=== PATIENT | female | born 1950 | race Caucasian/White ===

== ENCOUNTER 2017-07-11 20:50 | Inpatient (IN) | payer MEDICARE, BC ==
[2017-07-11] MEDS ORDERED: Albuterol 0.083% Inhal Sol (2.5 mg/3 mL) UD INH STA (21:05)
[2017-07-11] MEDS ORDERED: Albuterol-Ipratrop 3 mg / 0.5 (3 ml) UD IH STA (21:05)
--- NOTE | 2017-07-11 21:11 | ED PDOC ---
Arrival/HPI - General Chief Complaint: Shortness Of Breath Time Seen by Provider: 07/11/17 20:54 Historian: Patient - History of Present Illness Narrative History of Present Illness (Text): 07/11/17 20:55 Nayely Sandhu is a 67 year old female, whose past medical history includes asthma and COPD, who presents to the emergency department complaining of 2 day duration of fever, non-productive cough, chills, and body aches. Patient notes that she did not get the flu shot because last year, the flu shot exacerbated her COPD. Patient denies any chest pain, abdominal pain, nausea, vomiting, diarrhea, back pain, neck pain, urinary symptoms, headache, dizziness , or any other complaint. Time/Duration: < week Symptom Onset: Gradual Symptom Course: Unchanged Activities at Onset: Light Context: Home Past Medical History - Provider Review Nursing Documentation Reviewed: Yes - Infectious Disease Hx of Infectious Diseases: None - Tetanus Immunization Tetanus Immunization: Up to Date - Cardiac Hx Cardiac Disorders: Yes Hx Hypertension: Yes - Pulmonary Hx Chronic Obstructive Pulmonary Disease (COPD): Yes - Neurological Hx Neurological Disorder: No - HEENT Hx HEENT Disorder: No (WEARS GLASSES) - Renal Hx Renal Disorder: No - Endocrine/Metabolic Hx Diabetes Mellitus Type 1: Yes Hx Diabetes Mellitus Type 2: Yes - Hematological/Oncological Hx Blood Disorders: No - Integumentary Hx Dermatological Disorder: No - Musculoskeletal/Rheumatological Hx Back Pain: Yes Hx Falls: Yes Hx Osteoarthritis: Yes - Gastrointestinal Hx Diverticulitis: Yes Hx Gastroesophageal Reflux: Yes - Genitourinary/Gynecological Hx Urinary Tract Infection: Yes (Frequent) - Psychiatric Hx Psychophysiologic Disorder: No Hx Substance Use: No - Surgical History Hx Appendectomy: Yes Hx Cholecystectomy: Yes Hx Hysterectomy: Yes - Anesthesia Hx Anesthesia: Yes Hx Anesthesia Reactions: No Hx Malignant Hyperthermia: No - Suicidal Assessment Feels Threatened In Home Enviroment: No Family/Social History - Physician Review Nursing Documentation Reviewed: Yes Family/Social History: No Known Family HX Smoking Status: Never Smoked Hx Alcohol Use: No Hx Substance Use: No Hx Substance Use Treatment: No Allergies/Home Meds Allergies/Adverse Reactions: Allergies FISH Allergy (Verified 08/02/16 22:52) SHORTNESS OF BREATH iodine Allergy (Verified 08/02/16 22:52) ANAPHYLAXIS Home Medications: Home Meds Medication Instructions Recorded Confirmed Insulin Aspart Prot/Insuln Asp 32 units SC TID 11/30/11 07/12/17 [Novolog Mix 70-30 Vial] Insulin Glargine,Hum.rec.anlog 60 unit SC HS 11/30/11 07/12/17 [Lantus] Tiotropium [Spiriva] 18 mcg IH DAILY 11/30/11 07/12/17 Montelukast [Singulair] 10 mg PO DAILY 06/15/13 07/12/17 Review of Systems - Physician Review All systems were reviewed & negative as marked: Yes - Review of Systems Constitutional: Fevers, Night Sweats, Other (body aches) Eyes: absent: Vision Changes ENT: absent: Hearing Changes Respiratory: Cough Cardiovascular: absent: Chest Pain Gastrointestinal: absent: Abdominal Pain Genitourinary Female: absent: Dysuria, Frequency Musculoskeletal: absent: Arthralgias Skin: absent: Rash, Pruritis Neurological: absent: Headache Endocrine: absent: Diaphoresis Hemo/Lymphatic: absent: Adenopathy Psychiatric: absent: Anxiety, Depression Physical Exam Vital Signs Reviewed: Yes Vital Signs Temp Pulse Resp BP Pulse Ox 07/12/17 00:12 99.5 F 95 H 20 108/56 L 96 07/11/17 21:52 22 07/11/17 20:52 99.9 F H 86 24 95 Temperature: Febrile Blood Pressure: Normal Pulse: Regular Respiratory Rate: Normal Appearance: Positive for: Non-Toxic, Ill-Appearing Pain Distress: None Mental Status: Positive for: Alert and Oriented X 3 - Systems Exam Head: Present: Atraumatic, Normocephalic Pupils: Present: PERRL Extroacular Muscles: Present: EOMI Conjunctiva: Present: Normal Mouth: Present: Moist Mucous Membranes Neck: Present: Normal Range of Motion Respiratory/Chest: Present: Wheezes (bilaterally) Cardiovascular: Present: Regular Rate and Rhythm, Normal S1, S2. No: Murmurs Abdomen: Present: Normal Bowel Sounds. No: Tenderness, Distention, Peritoneal Signs Back: Present: Normal Inspection Upper Extremity: Present: Normal Inspection. No: Cyanosis, Edema Lower Extremity: Present: Normal Inspection. No: Edema Neurological: Present: GCS=15, CN II-XII Intact, Speech Normal Skin: Present: Warm, Dry, Normal Color. No: Rashes Psychiatric: Present: Alert, Oriented x 3, Normal Insight, Normal Concentration Medical Decision Making ED Course and Treatment: 07/11/17 21:12 Impression: 67 year old female complaining of 2 day duration of fever, non-productive cough , chills, and body aches Plan: -- Chest X-ray -- VBG and Blood Culture -- Urine Culture and Urinalysis -- Labs -- Albuterol and Duoneb -- Reassess and disposition Prior Visits: Notes and results from previous visits were reviewed. Patient was last seen in the emergency department on 07/29/16 for shortness of breath. Patient was admitted to hospitalist care for further evaluation. Progress Notes: 07/12/17 00:[address] Jernigan, who agrees to admit patient and advised patient to be given steroids and tamiflu. - Lab Interpretations Microbiology Results: Microbiology Results 07/11/17 22:20 Blood-Venous Blood Culture - Preliminary NO GROWTH AFTER 48 HOURS 07/11/17 21:48 Blood-Venous Blood Culture - Preliminary NO GROWTH AFTER 48 HOURS 07/11/17 23:29 Urine,Clean Catch Urine Culture - Final 10-50,000 CFU/ML. MULTIPLE SPECIES. PROBABLE CONTAMINATION. Lab Results: 07/11/17 21:48 07/11/17 21:48 Lab Results 07/11/17 23:29: Urine Color yellow, Urine Appearance Clear, Urine pH 6.0, Ur Specific [place] 1.020, Urine Protein Negative, Urine Glucose (UA) Negative, Urine Ketones Negative, Urine Blood Negative, Urine Nitrate Negative, Urine Bilirubin Negative, Urine Urobilinogen 0.2, Ur Leukocyte Esterase Negative 07/11/17 22:17: Influenza Typ A,B (EIA) Pos for influenza a H 07/11/17 21:48: Sodium 140, Chloride 98, Potassium 4.6, Carbon Dioxide 29, Anion Gap 18, BUN 17, Creatinine 0.7, Est GFR ( Amer) > 60, Est GFR (Non- Af Amer) > 60, Random Glucose 170 H, Calcium 9.9, Total Bilirubin 0.6, AST 40 H , ALT 28, Alkaline Phosphatase 104, Lactate Dehydrogenase 546, Total Creatine Kinase 60, Troponin I < 0.01, Total Protein 8.1, Albumin 4.2, Globulin 4.0, Albumin/Globulin Ratio 1.1 07/11/17 21:48: pO2 33, VBG pH 7.35, VBG pCO2 59.0, VBG HCO3 32.6 H, VBG Total CO2 34.4 H, VBG O2 Sat (Calc) 71.2 H, VBG Base Excess 5.2 H, VBG Potassium 4.9, Sodium 137.0, Chloride 101.0, Glucose 182 H, Lactate 1.8, FiO2 21.0, Venous Blood Potassium 4.9 07/11/17 21:48: PT 12.9 H, INR 1.13 H 07/11/17 21:48: WBC 9.7 D, RBC 4.53, Hgb 12.1, Hct 38.4, MCV 84.8, MCH 26.7, MCHC 31.5, RDW 15.2 H, Plt Count 250, MPV 11.1 H, Gran % 76.0 H, Lymph % (Auto) 13.0 L, [place] % (Auto) 10.4 H, Eos % (Auto) 0.4 L, Baso % (Auto) 0.2, Gran # 7.40 H, Lymph # (Auto) 1.3, [place] # (Auto) 1.0 H, Eos # (Auto) 0.0, Baso # (Auto ) 0.02 07/11/17 20:58: Influenza Typ A,B (EIA) Pos for influenza a H I have reviewed the lab results: Yes - RAD Interpretation Radiology Orders: 07/11/17 21:05 CHEST TWO VIEWS (PA/LAT) [RAD] Stat - Medication Orders Current Medication Orders: Acetaminophen (Tylenol 325mg Tab) 650 mg PO Q6H PRN PRN Reason: Pain, moderate (4-7) Last Admin: 07/12/17 08:31 Dose: 650 mg MAR Pain/Vitals Document 07/12/17 08:31 [facility] (Rec: 07/12/17 08:31 [facility] [id number]) Location Pain Location [employer] Arformoterol Tartrate (Brovana) 15 mcg IH [id number] [facility] Azithromycin (Zithromax) 500 mg PO DAILY [facility] PRN Reason: Protocol Stop: 07/17/17 12:01 Last Admin: 07/14/17 10:01 Dose: 500 mg Budesonide (Pulmicort Respules) 1 mg IH [id number] [facility] Clotrimazole (Mycelex Josh) 10 mg MT Q6 [facility] Last Admin: 07/14/17 17:19 Dose: 10 mg Insulin Human Regular (Humulin R Med) 0 units SC ACHS [facility] PRN Reason: Protocol Last Admin: 07/14/17 17:18 Dose: 1 units MAR Blood Glucose Document 07/14/17 17:18 GM (Rec: 07/14/17 17:18 GM [id number]) Blood Glucose Finger Stick Blood Glucose (70-120) 158 Subcutaneous Administrations Document 07/14/17 17:18 GM (Rec: 07/14/17 17:18 GM [id number]) Charges for Administration # of Subcutaneous Administrations 1 Levalbuterol HCl (Xopenex) 0.63 mg IH TIDRESP PRN PRN Reason: Shortness of Breath Montelukast Sodium (Singulair) 10 mg PO HS [facility] Last Admin: 07/13/17 21:44 Dose: 10 mg Ondansetron HCl (Zofran Inj) 4 mg IVP Q6H PRN PRN Reason: Nausea/Vomiting Last Admin: 07/12/17 13:10 Dose: 4 mg IVP Administration Document 07/12/17 13:10 SML (Rec: 07/12/17 13:10 SML [id number]) Charges for Administration # of IVP Administrations 1 Oseltamivir Phosphate (Tamiflu Cap) 75 mg PO BID [facility] PRN Reason: Protocol Stop: 07/17/17 06:41 Last Admin: 07/14/17 17:19 Dose: 75 mg Pantoprazole Sodium (Protonix Ec Tab) 40 mg PO 0600 [facility] Last Admin: 07/14/17 05:20 Dose: 40 mg Prednisone (Prednisone Tab) 20 mg PO DAILY [facility] Last Admin: 07/14/17 10:01 Dose: 20 mg Promethazine HCl/Codeine (Phenergan/Codeine Oral Syrup) 5 ml PO Q4H PRN PRN Reason: Cough and congestion Last Admin: 07/14/17 17:18 Dose: 5 ml Discontinued Medications Acetaminophen (Tylenol 325mg Tab) 975 mg PO STAT STA Stop: 07/11/17 21:53 Last Admin: 07/11/17 21:58 Dose: 975 mg MAR Pain/Vitals Document 07/11/17 21:58 OCS (Rec: 07/11/17 21:59 OCS [id number]) Pain Reassessment Is This A Pain ReAssessment? Yes Sleep Is patient sleeping during reassessment? No Presence of Pain Presence of Pain Yes Pain Scale Used Pain Scale Used Numeric Location Pain Location [employer] Description Constant Intensity 6 Scale Used Numeric Aggravating Factors ADL's Albuterol Sulfate (Albuterol 0.083% Inhal Unique (2.5 Mg/3 Ml) Ud) 2.5 mg INH STAT STA Stop: 07/11/17 21:06 Last Admin: 07/11/17 21:46 Dose: 2.5 mg Albuterol/Ipratropium (Duoneb 3 Mg/0.5 Mg (3 Ml) Ud) 3 ml IH STAT STA Stop: 07/11/17 21:06 Last Admin: 07/11/17 21:28 Dose: 3 ml Ceftriaxone Sodium (Rocephin 1 Gram Ivpb) 1 gm in 100 mls @ 100 mls/hr IVPB DAILY [facility] PRN Reason: Protocol Last Admin: 07/12/17 09:10 Dose: 100 mls/hr eMAR Start Stop Document 07/12/17 09:10 SML (Rec: 07/12/17 10:33 SML [id number]) Intravenous Solution Start Date 07/12/17 Start Time 09:10 End Date 07/12/17 End time 10:10 Total Infusion Time 60 Methylprednisolone (Solu-Medrol) 40 mg IVP STAT STA Stop: 07/12/17 00:31 Last Admin: 07/12/17 00:54 Dose: 40 mg IVP Administration Document 07/12/17 00:54 OCS (Rec: 07/12/17 00:54 OCS [id number]) Charges for Administration # of IVP Administrations 1 Methylprednisolone (Solu-Medrol) 40 mg IVP Q12 [facility] Last Admin: 07/13/17 10:08 Dose: 40 mg IVP Administration Document 07/13/17 10:08 JW (Rec: 07/13/17 10:08 JW [id number]) Charges for Administration # of IVP Administrations 1 Oseltamivir Phosphate (Tamiflu Cap) 75 mg PO ONCE ONE PRN Reason: Protocol Stop: 07/12/17 00:31 Last Admin: 07/12/17 00:54 Dose: 75 mg Promethazine HCl/Dextromethorphan (Phenergan Dm Syrup) 5 ml PO Q6H PRN PRN Reason: Cough Last Admin: 07/14/17 13:52 Dose: 5 ml - PA / [employer]IN[employer]ENT TAX COLLECTOR / Resident Statement MD/DO has reviewed & agrees with the documentation as recorded. - Scribe Statement The provider has reviewed the documentation as recorded by the Scribe Mariaelena Alfaro Provider Scribe Attestation: All medical record entries made by the Scribe were at my direction and personally dictated by me. I have reviewed the chart and agree that the record accurately reflects my personal performance of the history, physical exam, medical decision making, and the department course for this patient. I have also personally directed, reviewed, and agree with the discharge instructions and disposition. Disposition/Present on Arrival - Present on Arrival Any Indicators Present on Arrival: No History of DVT/PE: No History of Uncontrolled Diabetes: No Urinary Catheter: No History of Decub. Ulcer: No History Surgical Site Infection Following: None - Disposition Have Diagnosis and Disposition been Completed?: Yes Diagnosis: Influenza A, COPD (chronic obstructive pulmonary disease) Disposition: HOSPITALIZED Disposition Time: 07:00 Patient Plan: Admission Condition: IMPROVED
[2017-07-11 22:02] LABS: BASO # 0.02 K/mm3 (0.0-2.0); BASO % 0.2 % (0.0-3.0); EOS % 0.4 % (1.5-5.0); GRAN # 7.4 (1.4-6.5); HEMOGLOBIN 12.1 g/dL (12.0-16.0); LYMPH # 1.3 (1.2-3.4); MEAN CELL VOLUME 84.8 fl (80.0-105.0); MEAN CORPUSCULAR HEMOGLOBIN 26.7 pg (25.0-35.0); MEAN CORPUSCULAR HGB CONC 31.5 g/dl (31.0-37.0); MEAN PLATELET VOLUME 11.1 fl (7.0-11.0); MONO % 10.4 % (1.0-6.0); RBC 4.53 10^6/uL (3.5-6.1); RED CELL DISTRIBUTION WIDTH 15.2 % (11.5-14.5); WHITE BLOOD COUNT 9.7 10^3/ul (4.5-11.0)
[2017-07-11 22:05] LABS: VENOUS BLOOD GAS BASE EXCESS 5.2 mmol/L (0.0-2.0); VENOUS BLOOD GAS PO2 33 mm/Hg (30-55); VENOUS BLOOD PH 7.35 (7.32-7.43)
[2017-07-11 22:14] LABS: INR 1.13 (0.93-1.08); PROTHROMBIN TIME 12.9 SECONDS (9.4-12.5)
[2017-07-11 22:15] LABS: ALB/GLOB RATIO 1.1 (1.1-1.8); ALBUMIN 4.2 g/dL (3.0-4.8); CALCIUM 9.9 mg/dL (8.4-10.5); GFR AFRICAN-AMERICAN > 60; GFR NON-AFRICAN AMERICAN > 60
[2017-07-11 22:27] LABS: TROPONIN I < 0.01 ng/mL
[2017-07-11 22:30] LABS: ALT/SGPT 28 U/L (7-56); AST/SGOT 40 U/L (14-36); BLOOD UREA NITROGEN 17 mg/dL (7-21)
[2017-07-11 23:47] LABS: URINE BILIRUBIN NEGATIVE (NEGATIVE); URINE BLOOD NEGATIVE (NEGATIVE); URINE GLUCOSE (UA) NEGATIVE (NEGATIVE); URINE LEUKOCYTE ESTERASE NEGATIVE Leu/uL (NEGATIVE); URINE NITRATE NEGATIVE (NEGATIVE); URINE PROTEIN NEGATIVE mg/dL (<30 mg/dL); URINE UROBILINOGEN 0.2 E.U./dL (<1 E.U./dL)
[2017-07-11 23:48] LABS: URINE APPEARANCE CLEAR (CLEAR)
[2017-07-12] MEDS ORDERED: MethylPREDNISolone 40 mg Vial IVP STA (00:30)
[2017-07-12 02:41] VITALS: BMI 49.8
[2017-07-12] MEDS ORDERED: Levalbuterol 0.63 MG/3 ML Inhal Soln UD IH PRN (06:37)
[2017-07-12] MEDS: Insulin Reg-MEDIUM-Coverage SC SCH ×4 (08:31→22:23)
--- NOTE | 2017-07-12 08:37 | RAD ---
HISTORY: cough/cold hx of copd, r/o pneumonia COMPARISON: 07/29/2016 TECHNIQUE: Chest PA and lateral FINDINGS: LUNGS: No active pulmonary disease. PLEURA: No significant pleural effusion identified. No pneumothorax apparent. CARDIOVASCULAR: Normal. OSSEOUS STRUCTURES: No significant abnormalities. VISUALIZED UPPER ABDOMEN: Normal. OTHER FINDINGS: None. IMPRESSION: No active disease.
[2017-07-12] MEDS: MethylPREDNISolone 40 mg Vial IVP SCH ×2 (09:08→22:23)
[2017-07-12] MEDS: Insulin Human NPH/Reg 70/30 Vial(3 ml) SC SCH ×3 (09:10→17:45)
[2017-07-12] MEDS ORDERED: cefTRIAXone 1 gm 1 GM/100 ML BAG IVPB SCH (10:00)
--- NOTE | 2017-07-12 12:01 | CP.PCM.CON ---
History of Present Illness - History of Present Illness History of Present Illness: 67 year old female with PMH of HTN, dyslipidemia, asthma, morbid obesity with BMI 50, history of diverticulosis, obstructive sleep apnea, COPD came in to [facility] complaining of 2 days of fever with cough with whitish phlegm, chills and body aches. She denies sore throat, no rhinorrhea, no blurring of vision, has headache which comes and goes, no nausea or vomiting, no chest pain, dyspnea on exertion, no abdominal pain, no diarrhea, no dysuria. Rapid flu test is positive. Infectious Diseases consult is requested to further evaluate and manage. Review of Systems - Review of Systems All systems: reviewed and no additional remarkable complaints except (as per HPI ) Past Patient History - Infectious Disease Hx of Infectious Diseases: None - Tetanus Immunizations Tetanus Immunization: Up to Date - Past Social History Smoking Status: Former Smoker - CARDIAC Hx Cardiac Disorders: Yes Hx Hypertension: Yes Other/Comment: cardiomegaly - PULMONARY Hx Respiratory Disorders: Yes Hx Asthma: Yes Hx Chronic Obstructive Pulmonary Disease (COPD): Yes - NEUROLOGICAL Hx Neurological Disorder: No - HEENT Hx HEENT Problems: Yes (WEARS GLASSES) - RENAL Hx Chronic Kidney Disease: No - ENDOCRINE/METABOLIC Hx Endocrine Disorders: Yes Hx Diabetes Mellitus Type 1: Yes Hx Diabetes Mellitus Type 2: Yes - HEMATOLOGICAL/ONCOLOGICAL Hx Blood Disorders: No - INTEGUMENTARY Hx Dermatological Problems: No - MUSCULOSKELETAL/RHEUMATOLOGICAL Hx Musculoskeletal Disorders: Yes Hx Back Pain: Yes Hx Falls: Yes Hx Osteoarthritis: Yes - GASTROINTESTINAL Hx Gastrointestinal Disorders: Yes Hx Diverticulitis: Yes Hx Gastroesophageal Reflux: Yes - GENITOURINARY/GYNECOLOGICAL Hx Urinary Tract Infection: Yes (Frequent) - PSYCHIATRIC Hx Psychophysiologic Disorder: No Hx Substance Use: No - SURGICAL HISTORY Hx Surgeries: Yes Hx Appendectomy: Yes Hx Cholecystectomy: Yes Hx Hysterectomy: Yes - ANESTHESIA Hx Anesthesia: Yes Hx Anesthesia Reactions: No Hx Malignant Hyperthermia: No Meds Allergies/Adverse Reactions: Allergies Allergy/AdvReac Type Severity Reaction Status Date / Time FISH Allergy SHORTNESS Verified 08/02/16 22:52 OF BREATH iodine Allergy ANAPHYLAXIS Verified 08/02/16 22:52 - Medications Medications: Current Medications Acetaminophen (Tylenol 325mg Tab) 650 mg PO Q6H PRN PRN Reason: Pain, moderate (4-7) Ceftriaxone Sodium (Rocephin 1 Gram Ivpb) 1 gm in 100 mls @ 100 mls/hr IVPB DAILY [facility] PRN Reason: Protocol Insulin Human Regular (Humulin R Med) 0 units SC ACHS [facility] PRN Reason: Protocol Levalbuterol HCl (Xopenex) 0.63 mg IH TIDRESP PRN PRN Reason: Shortness of Breath Methylprednisolone (Solu-Medrol) 40 mg IVP Q12 [facility] Montelukast Sodium (Singulair) 10 mg PO HS [facility] Oseltamivir Phosphate (Tamiflu Cap) 75 mg PO BID [facility] PRN Reason: Protocol Stop: 07/17/17 06:41 Pantoprazole Sodium (Protonix Ec Tab) 40 mg PO 0600 [facility] Physical Exam - Constitutional Appears: Non-toxic - Head Exam Head Exam: NORMAL INSPECTION - ENT Exam ENT Exam: Mucous Membranes Moist - Neck Exam Neck exam: Negative for: Meningismus - Respiratory Exam Respiratory Exam: Decreased Breath Sounds - Cardiovascular Exam Cardiovascular Exam: +S1, +S2 - GI/Abdominal Exam GI & Abdominal Exam: Soft. absent: Tenderness Results - Vital Signs Recent Vital Signs: Last Vital Signs Temp 99 F 07/12/17 08:08 Pulse 72 07/12/17 08:08 Resp 20 07/12/17 08:08 BP 160/60 H 07/12/17 08:08 Pulse Ox 96 07/12/17 08:08 - Labs Result Diagrams: 07/11/17 21:48 07/11/17 21:48 Labs: Laboratory Results - last 24 hr 07/12/17 02:10 POC Glucose (mg/dL) 119 H Assessment & Plan - Assessment and Plan (Free Text) Plan: Assessment systemic viral illness with Influenza, consider COPD exacerbation as well history of multifocal healthcare-associated pneumonia with sputum cx that grew ESBL-producing E. coli HTN dyslipidemia asthma morbid obesity with BMI 48 history of diverticulosis obstructive sleep apnea Plan started patient on Tamiflu, Rocephin and Zithromax; follow up blood cx, CXR, PCT continue to monitor clinically
--- NOTE | 2017-07-12 12:30 | CARD ---
APPROVED REPORT EKG Measurement Heart [id number] <Conclusion> Normal sinus rhythm Normal ECG
[2017-07-12] MEDS: Promethazine DM 6.25 mg-15 mg/5 ml Syrup PO PRN (13:10)
--- NOTE | 2017-07-12 23:39 | HP ---
HISTORY OF PRESENT ILLNESS: The patient is 67 years old, known to me from multiple previous admissions, came to emergency room because of increasing shortness of breath, cough, congestion, fever, has been going on for the last 2 to 3 days, has dry cough, chills, body aches and pains. Denies any nausea or vomiting. No hemoptysis, no hematemesis, no rectal bleeding. PAST MEDICAL HISTORY: Significant for; 1. Morbid obesity. 2. COPD. 3. Hypertension. 4. Hyperlipidemia. 5. Insulin-dependent diabetes. ALLERGIES: SHE IS ALLERGIC TO FISH AND IODINE. SOCIAL HISTORY: She is single, lives with her son. Denies smoking, drinking or alcohol use. MEDICATIONS AT HOME: She is on Singulair 10 mg daily, insulin 32 units 3 times a day, Lantus 60 units at bedtime, Pulmicort, aspirin 81 daily, Brovana, Spiriva 18 mcg daily, and Protonix 40 mg daily. REVIEW OF SYSTEMS: Significant for generalized body aches and pain, fever, cough and congestion. PHYSICAL EXAMINATION: GENERAL: She is awake, alert, oriented, communicative. VITAL SIGNS: Afebrile, pulse 72, respirations 20, blood pressure 160/60. LUNGS: Bilateral fair air flow. No rhonchi or crackle. HEART: S1 and S2 audible. ABDOMEN: Soft, obese, nontender. No rebound, no guarding. NEUROLOGICAL: She is awake and alert, able to communicate, and ambulatory. LABORATORY DATA: WBC 9.7, hemoglobin 12, hematocrit 38, platelets of 250. Chemistry: Sodium 140, potassium 4.6, chloride 98, CO2 of 29, BUN 17, creatinine 0.7, blood sugar 319. Flu test is positive. ASSESSMENT: 1. Viral syndrome. 2. Asthmatic bronchitis. 3. Hypertension. 4. Hyperlipidemia. 5. Insulin-dependent diabetes. PLAN: The patient is getting nebulizer treatment. We will restart her usual dose of insulin. She is on Protonix. She is getting Rocephin 1 g daily. She is on prednisone and Tamiflu. We will follow up the patient in a.m. Kaushik Jernigan MD [facility] # [id number]
[2017-07-13 06:38] LABS: MEAN CELL VOLUME 84.9 fl (80.0-105.0); MEAN CORPUSCULAR HEMOGLOBIN 26.7 pg (25.0-35.0); MEAN CORPUSCULAR HGB CONC 31.5 g/dl (31.0-37.0); MEAN PLATELET VOLUME 10.7 fl (7.0-11.0); RBC 4.49 10^6/uL (3.5-6.1); WHITE BLOOD COUNT 6.7 10^3/ul (4.5-11.0)
[2017-07-13 07:28] LABS: ALBUMIN 3.8 g/dL (3.0-4.8); ALT/SGPT 24 U/L (7-56); AST/SGOT 25 U/L (14-36); BLOOD UREA NITROGEN 19 mg/dL (7-21); CALCIUM 9.9 mg/dL (8.4-10.5); GFR AFRICAN-AMERICAN > 60; GFR NON-AFRICAN AMERICAN > 60
[2017-07-13] MEDS: Insulin Human NPH/Reg 70/30 Vial(3 ml) SC SCH ×3 (10:03→17:56)
[2017-07-13] MEDS: Insulin Reg-MEDIUM-Coverage SC SCH ×4 (10:04→22:03)
[2017-07-13] MEDS: Promethazine DM 6.25 mg-15 mg/5 ml Syrup PO PRN (10:05)
[2017-07-13] MEDS: MethylPREDNISolone 40 mg Vial IVP SCH (10:08)
--- NOTE | 2017-07-13 11:34 | CP.PCM.PN ---
Subjective - Date & Time of Evaluation Date of Evaluation: 07/13/17 Time of Evaluation: 10:35 - Subjective Subjective: Breathing better, no fevers, not in distress. Breathing better. Objective - Vital Signs/Intake and Output Vital Signs (last 24 hours): Temp Pulse Resp BP Pulse Ox 98.3 F 62 19 123/55 L 97 07/13/17 08:38 07/13/17 08:38 07/13/17 08:38 07/13/17 08:38 07/13/17 08:38 Intake and Output: 07/13/17 07/13/17 06:59 18:59 Intake Total 540 360 Balance 540 360 - Medications Medications: Current Medications Acetaminophen (Tylenol 325mg Tab) 650 mg PO Q6H PRN PRN Reason: Pain, moderate (4-7) Last Admin: 07/12/17 08:31 Dose: 650 mg Azithromycin (Zithromax) 500 mg PO DAILY [facility] PRN Reason: Protocol Stop: 07/17/17 12:01 Last Admin: 07/12/17 13:10 Dose: 500 mg Insulin Human Regular (Humulin R Med) 0 units SC ACHS [facility] PRN Reason: Protocol Last Admin: 07/12/17 22:23 Dose: Not Given Levalbuterol HCl (Xopenex) 0.63 mg IH TIDRESP PRN PRN Reason: Shortness of Breath Methylprednisolone (Solu-Medrol) 40 mg IVP Q12 [facility] Last Admin: 07/12/17 22:23 Dose: 40 mg Montelukast Sodium (Singulair) 10 mg PO HS [facility] Last Admin: 07/12/17 22:23 Dose: 10 mg Ondansetron HCl (Zofran Inj) 4 mg IVP Q6H PRN PRN Reason: Nausea/Vomiting Last Admin: 07/12/17 13:10 Dose: 4 mg Oseltamivir Phosphate (Tamiflu Cap) 75 mg PO BID [facility] PRN Reason: Protocol Stop: 07/17/17 06:41 Last Admin: 07/12/17 17:46 Dose: 75 mg Pantoprazole Sodium (Protonix Ec Tab) 40 mg PO 0600 [facility] Promethazine HCl/Dextromethorphan (Phenergan Dm Syrup) 5 ml PO Q6H PRN PRN Reason: Cough Last Admin: 07/12/17 13:10 Dose: 5 ml - Labs Labs: 02/07/18 06:10 07/13/17 06:10 PT 12.9 SECONDS (9.4-12.5) H 07/11/17 21:48 INR 1.13 (0.93-1.08) H 07/11/17 21:48 - Constitutional Appears: Non-toxic - Head Exam Head Exam: NORMAL INSPECTION - ENT Exam ENT Exam: Mucous Membranes Moist - Neck Exam Neck Exam: absent: Meningismus - Respiratory Exam Respiratory Exam: Decreased Breath Sounds - Cardiovascular Exam Cardiovascular Exam: +S1, +S2 - GI/Abdominal Exam GI & Abdominal Exam: Soft. absent: Tenderness Assessment and Plan - Assessment and Plan (Free Text) Plan: Assessment systemic viral illness with Influenza, consider COPD exacerbation as well history of multifocal healthcare-associated pneumonia with sputum cx that grew ESBL-producing E. coli HTN dyslipidemia asthma morbid obesity with BMI 48 history of diverticulosis obstructive sleep apnea Plan continue Tamiflu and Zithromax day 2 to complete a 5 day course; blood cx are negative, CXR does not show pneumonia, PCT is <0.05 continue to monitor clinically
[2017-07-13] MEDS: Pantoprazole 40 mg EC Tab PO SCH (13:12)
--- NOTE | 2017-07-13 15:20 | PN ---
DATE: SUBJECTIVE: The patient is 67 years old, seen and examined, sitting in chair. She states she feels a lot better than yesterday. Still has cough and congestion, less wheezing. PHYSICAL EXAMINATION: VITAL SIGNS: She is afebrile, pulse 62, respirations 19, blood pressure 123/55. LUNGS: Soft rhonchi bilaterally. HEART: S1, S2 audible. ABDOMEN: Soft, nontender. No rebound, no guarding. NEUROLOGIC: Patient is awake, alert, oriented, communicative. LABORATORY DATA: WBC is 6.7, hemoglobin 12, hematocrit 38, platelet 262. Chemistry: Sodium 142, potassium 5.1, chloride 102, CO2 of 28, BUN 19, creatinine 0.6, blood sugar of 265. X-ray of chest is unremarkable. ASSESSMENT: 1. Viral syndrome. 2. Asthmatic bronchitis. 3. Bronchospasm. 4. Insulin-dependent diabetes. 5. Morbid obesity. 6. Hyperlipidemia. 7. History of sleep apnea. PLAN: Patient is currently on Tamiflu and Zithromax. Blood cultures are negative. We will continue current medications, monitor blood sugar, cut down her steroids since she is not wheezing as much. We will switch to p.o. prednisone 20 mg daily only and we will rapidly taper it down since her blood sugar is running high. We will follow up this patient . Kaushik Jernigan MD
[2017-07-14] MEDS: Pantoprazole 40 mg EC Tab PO SCH (05:20)
[2017-07-14] MEDS: Promethazine DM 6.25 mg-15 mg/5 ml Syrup PO PRN ×2 (06:29→13:52)
[2017-07-14] MEDS: Insulin Reg-MEDIUM-Coverage SC SCH ×4 (10:02→21:19)
[2017-07-14] MEDS: Insulin Human NPH/Reg 70/30 Vial(3 ml) SC SCH ×3 (10:04→17:18)
--- NOTE | 2017-07-14 15:01 | CT ---
PROCEDURE: CT Chest without contrast HISTORY: chest congestion, wheezing COMPARISON: 08/09/2016 CT TECHNIQUE: Contiguous axial images were obtained through the chest without intravenous contrast enhancement. Sagittal and coronal reconstructions were performed. Radiation dose (DLP): 1022 mGy-cm. This CT exam was performed using one or more of the following dose reduction techniques: Automated exposure control, adjustment of the mA and/or kV according to patient size, and/or use of iterative reconstruction technique. FINDINGS: LUNGS: Clear lungs. Visualized airway clear. The previous study showed multiple patchy peripheral infiltrates that are no longer seen. MEDIASTINUM: Unremarkable thoracic aorta. No aneurysm. Normal sized heart. Main pulmonary artery unremarkable. No vascular congestion. No lymphadenopathy. PLEURA: No pleural fluid. No pneumothorax. BONES: No fracture. No destructive lesion. UPPER ABDOMEN: Grossly unremarkable. OTHER FINDINGS: None. IMPRESSION: Unremarkable non-contrast enhanced CT of the chest.
[2017-07-14] MEDS: Promethazine/Cod 6.25mg-10mg/5ml Syr UD PO PRN ×2 (17:18→21:26)
[2017-07-14] MEDS: Arformoterol 15 mcg/2 ml Inh Sol IH SCH (19:50)
[2017-07-14] MEDS: Budesonide 0.5 mg/2 ml Inhal Susp UD IH SCH (19:50)
--- NOTE | 2017-07-14 19:59 | CP.PCM.PN ---
Subjective - Date & Time of Evaluation Date of Evaluation: 07/14/17 Time of Evaluation: 10:30 - Subjective Subjective: Breathing better, no fevers, cough is better. Objective - Vital Signs/Intake and Output Vital Signs (last 24 hours): Temp Pulse Resp BP Pulse Ox 98.6 F 57 L 20 124/62 98 07/14/17 08:52 07/14/17 08:52 07/14/17 08:52 07/14/17 08:52 07/14/17 08:52 Intake and Output: 07/14/17 07/14/17 06:59 18:59 Intake Total 120 Balance 120 - Medications Medications: Current Medications Acetaminophen (Tylenol 325mg Tab) 650 mg PO Q6H PRN PRN Reason: Pain, moderate (4-7) Last Admin: 07/12/17 08:31 Dose: 650 mg Azithromycin (Zithromax) 500 mg PO DAILY ROC[facility] PRN Reason: Protocol Stop: 07/17/17 12:01 Last Admin: 07/13/17 10:09 Dose: 500 mg Clotrimazole (Mycelex Josh) 10 mg MT Q6 [facility] Last Admin: 07/14/17 05:20 Dose: 10 mg Insulin Human Regular (Humulin R Med) 0 units SC ACHS [facility] PRN Reason: Protocol Last Admin: 07/13/17 22:03 Dose: 3 units Levalbuterol HCl (Xopenex) 0.63 mg IH TIDRESP PRN PRN Reason: Shortness of Breath Montelukast Sodium (Singulair) 10 mg PO HS [facility] Last Admin: 07/13/17 21:44 Dose: 10 mg Ondansetron HCl (Zofran Inj) 4 mg IVP Q6H PRN PRN Reason: Nausea/Vomiting Last Admin: 07/12/17 13:10 Dose: 4 mg Oseltamivir Phosphate (Tamiflu Cap) 75 mg PO BID ROCIO PRN Reason: Protocol Stop: 07/17/17 06:41 Last Admin: 07/13/17 17:57 Dose: 75 mg Pantoprazole Sodium (Protonix Ec Tab) 40 mg PO 0600 [facility] Last Admin: 07/14/17 05:20 Dose: 40 mg Prednisone (Prednisone Tab) 20 mg PO DAILY [facility] Last Admin: 07/13/17 13:10 Dose: 20 mg Promethazine HCl/Dextromethorphan (Phenergan Dm Syrup) 5 ml PO Q6H PRN PRN Reason: Cough Last Admin: 07/14/17 06:29 Dose: 5 ml - Labs Labs: 07/13/17 06:10 07/13/17 06:10 PT 12.9 SECONDS (9.4-12.5) H 07/11/17 21:48 INR 1.13 (0.93-1.08) H 07/11/17 21:48 - Constitutional Appears: Non-toxic, Chronically Ill - Head Exam Head Exam: NORMAL INSPECTION - Neck Exam Neck Exam: absent: Meningismus - Respiratory Exam Respiratory Exam: Decreased Breath Sounds - Cardiovascular Exam Cardiovascular Exam: +S1, +S2 - GI/Abdominal Exam GI & Abdominal Exam: Soft. absent: Tenderness Assessment and Plan - Assessment and Plan (Free Text) Plan: Assessment systemic viral illness with Influenza, consider COPD exacerbation as well history of multifocal healthcare-associated pneumonia with sputum cx that grew ESBL-producing E. coli HTN dyslipidemia asthma morbid obesity with BMI 48 history of diverticulosis obstructive sleep apnea Plan continue Tamiflu and Zithromax day 3 to complete a 5 day course; blood cx are negative, CXR and CT chest does not show pneumonia, PCT is <0.05 continue to monitor clinically
--- NOTE | 2017-07-14 20:56 | PN ---
DATE: SUBJECTIVE: The patient is 67-year-old, seen and examined, complain of hacking cough, mild shortness of breath, no more fever. PHYSICAL EXAMINATION VITAL SIGNS: She is afebrile, pulse 57, respirations 20, blood pressure 120/ . LUNGS: Bilateral soft crackles, diffuse, more pronounced posteriorly. HEART: S1 and S2 audible. ABDOMEN: Soft, nontender. No rebound, no guarding. NEUROLOGICAL: The patient is awake, alert, oriented, able to communicate, ambulatory. LABORATORY DATA: Blood sugar is 154. Flu test is positive. ASSESSMENT: Viral syndrome, asthmatic bronchitis, bronchospasm, history of asthma, obstructive sleep apnea. PLAN: Currently the patient is on prednisone 20 mg daily, we will start her on Phenergan with Codeine. Continue on the Singulair. Continue Tamiflu and Zithromax. We will reevaluate the patient in the a.m. Monitor blood sugar closely. If she improves, we will make discharge plan in a.m. Kaushik Jernigan MD
[2017-07-15] MEDS: Pantoprazole 40 mg EC Tab PO SCH (05:31)
[2017-07-15 07:30] LABS: HEMOGLOBIN 11.9 g/dL (12.0-16.0); MEAN CELL VOLUME 85.3 fl (80.0-105.0); MEAN CORPUSCULAR HGB CONC 30.5 g/dl (31.0-37.0); MEAN PLATELET VOLUME 10.2 fl (7.0-11.0); RBC 4.57 10^6/uL (3.5-6.1); RED CELL DISTRIBUTION WIDTH 14.9 % (11.5-14.5); WHITE BLOOD COUNT 9.4 10^3/ul (4.5-11.0)
[2017-07-15 07:50] LABS: ALBUMIN 3.5 g/dL (3.0-4.8); ALT/SGPT 28 U/L (7-56); AST/SGOT 22 U/L (14-36); BLOOD UREA NITROGEN 26 mg/dL (7-21); CALCIUM 9.1 mg/dL (8.4-10.5); GFR AFRICAN-AMERICAN > 60; GFR NON-AFRICAN AMERICAN > 60
[2017-07-15] MEDS: Insulin Reg-MEDIUM-Coverage SC SCH ×2 (08:27→13:12)
[2017-07-15] MEDS: Arformoterol 15 mcg/2 ml Inh Sol IH SCH (08:46)
[2017-07-15] MEDS: Budesonide 0.5 mg/2 ml Inhal Susp UD IH SCH (08:46)
[2017-07-15 08:53] VITALS: BP 145/74; PULSE 60; RESP 18; TEMP 97.7; O2SAT 94
[2017-07-15] MEDS: Insulin Human NPH/Reg 70/30 Vial(3 ml) SC SCH ×2 (09:57→13:37)
--- NOTE | 2017-07-15 12:12 | CP.PCM.PN ---
Subjective - Date & Time of Evaluation Date of Evaluation: 07/15/17 Time of Evaluation: 10:25 - Subjective Subjective: Comfortable, less cough, no fevers. Objective - Vital Signs/Intake and Output Vital Signs (last 24 hours): Temp Pulse Resp BP Pulse Ox 97.7 F 60 18 145/74 94 L 07/15/17 06:00 07/15/17 06:00 07/15/17 06:00 07/15/17 06:00 07/15/17 06:00 Intake and Output: 07/15/17 07/15/17 06:59 18:59 Intake Total 660 Output Total 200 Balance 460 - Medications Medications: Current Medications Acetaminophen (Tylenol 325mg Tab) 650 mg PO Q6H PRN PRN Reason: Pain, moderate (4-7) Last Admin: 07/12/17 08:31 Dose: 650 mg Arformoterol Tartrate (Brovana) 15 mcg IH [id number] [facility] Last Admin: 07/15/17 08:46 Dose: Not Given Azithromycin (Zithromax) 500 mg PO DAILY ROC[facility] PRN Reason: Protocol Stop: 07/17/17 12:01 Last Admin: 07/14/17 10:01 Dose: 500 mg Budesonide (Pulmicort Respules) 1 mg IH [id number] [facility] Last Admin: 07/15/17 08:46 Dose: Not Given Clotrimazole (Mycelex Josh) 10 mg MT Q6 [facility] Last Admin: 07/15/17 05:31 Dose: 10 mg Insulin Human Regular (Humulin R Med) 0 units SC ACHS [facility] PRN Reason: Protocol Last Admin: 07/15/17 08:27 Dose: Not Given Levalbuterol HCl (Xopenex) 0.63 mg IH TIDRESP PRN PRN Reason: Shortness of Breath Montelukast Sodium (Singulair) 10 mg PO HS [facility] Last Admin: 07/14/17 21:19 Dose: 10 mg Ondansetron HCl (Zofran Inj) 4 mg IVP Q6H PRN PRN Reason: Nausea/Vomiting Last Admin: 07/12/17 13:10 Dose: 4 mg Oseltamivir Phosphate (Tamiflu Cap) 75 mg PO BID [facility] PRN Reason: Protocol Stop: 07/17/17 06:41 Last Admin: 07/14/17 17:19 Dose: 75 mg Pantoprazole Sodium (Protonix Ec Tab) 40 mg PO 0600 [facility] Last Admin: 07/15/17 05:31 Dose: 40 mg Prednisone (Prednisone Tab) 20 mg PO DAILY [facility] Last Admin: 07/14/17 10:01 Dose: 20 mg Promethazine HCl/Codeine (Phenergan/Codeine Oral Syrup) 5 ml PO Q4H PRN PRN Reason: Cough and congestion Last Admin: 07/14/17 21:26 Dose: 5 ml - Labs Labs: 07/15/17 07:00 07/15/17 07:00 PT 12.9 SECONDS (9.4-12.5) H 07/11/17 21:48 INR 1.13 (0.93-1.08) H 07/11/17 21:48 - Constitutional Appears: Non-toxic - Head Exam Head Exam: NORMAL INSPECTION - Respiratory Exam Respiratory Exam: Decreased Breath Sounds - Cardiovascular Exam Cardiovascular Exam: +S1, +S2 - GI/Abdominal Exam GI & Abdominal Exam: Soft. absent: Tenderness Assessment and Plan - Assessment and Plan (Free Text) Plan: Assessment systemic viral illness with Influenza, consider COPD exacerbation as well history of multifocal healthcare-associated pneumonia with sputum cx that grew ESBL-producing E. coli HTN dyslipidemia asthma morbid obesity with BMI 48 history of diverticulosis obstructive sleep apnea Plan continue Tamiflu and Zithromax day 4 to complete a 5 day course; blood cx are negative, CXR and CT chest does not show pneumonia, PCT is <0.05
--- NOTE | 2017-07-16 02:31 | DS ---
HISTORY OF PRESENT ILLNESS: The patient is 67 years old, who was admitted with increasing cough, congestion, shortness of breath, was found positive for flu, was given Tamiflu for total of 3 days. The patient started to improve and being send home today. On examination today, still complained of cough and congestion with wheezing, but better than before. PHYSICAL EXAMINATION: VITAL SIGNS: She is afebrile, pulse 60, respirations 18, blood pressure 145/74. LUNGS: Bilateral few expiratory rhonchi. HEART: S1 and S2 audible. ABDOMEN: Soft, obese, nontender. No rebound. No guarding. NEUROLOGIC: The patient is awake, alert, oriented, able to communicate, ambulatory. EXTREMITIES: Bilateral leg, no edema. LABORATORY EXAM: WBC is 9.4, hemoglobin 11.9, hematocrit 39, platelet 253. Chemistry: Sodium 142, potassium 4.3, chloride 101, CO2 of 31, BUN 26, creatinine 0.7, blood sugar of 167. ASSESSMENT: 1. Viral syndrome. 2. Asthmatic bronchitis. 3. Hypertension. 4. Hyperlipidemia. 5. Morbid obesity. 6. Obstructive sleep apnea. PLAN: The patient is being discharged home today on Tamiflu 75 twice a day. She is on Levaquin 500 mg daily. She was given prescription of Phenergan with Codeine and prednisone. She is advised to use nebulizer machine. Also, she will resume all her other medications. She is advised to monitor her blood sugar closely. She is advised to follow up with PMD and if her condition gets worse, she should come back to emergency room. Kaushik Jernigan MD
== END 2017-07-15 16:41 | disposition home or self-care (01) | DRG 194 ==
LOC: ED 20:50 → ERH 07-12 00:31 → 3RNO 07-12 02:38
PROVIDERS: ADMIT Internal Medicine; ATTEND Internal Medicine
PROC: 3E0F7GC Introduction of Other Therapeutic Substance into Respiratory Tract, Via Natural or Artificial Opening (ICD-10-PCS; principal; 2017-07-14)
DX: J10.1 Influenza due to other identified influenza virus with other respiratory manifestations (principal); J44.1 Chronic obstructive pulmonary disease with (acute) exacerbation; E66.01 Morbid (severe) obesity due to excess calories; Z68.42 Body mass index [BMI] 45.0-49.9, adult; G47.33 Obstructive sleep apnea (adult) (pediatric); E11.9 Type 2 diabetes mellitus without complications; E78.5 Hyperlipidemia, unspecified; I10 Essential (primary) hypertension; K21.9 Gastro-esophageal reflux disease without esophagitis; Z79.4 Long term (current) use of insulin; Z79.82 Long term (current) use of aspirin; Z87.01 Personal history of pneumonia (recurrent); Z87.891 Personal history of nicotine dependence

== ENCOUNTER 2018-02-24 19:08 | Inpatient (IN) | payer MEDICARE, BC ==
[2018-02-24] MEDS ORDERED: Albuterol-Ipratrop 3 mg / 0.5 (3 ml) UD IH STA (20:58)
[2018-02-24 21:20] LABS: BASO # 0.02 K/mm3 (0.0-2.0); BASO % 0.2 % (0.0-3.0); EOS # 0.3 (0.0-0.7); EOS % 2.7 % (1.5-5.0); GRAN # 7.68 (1.4-6.5); GRAN % 65.6 % (50.0-68.0); HEMOGLOBIN 12.1 g/dL (12.0-16.0); LYMPH # 2.9 (1.2-3.4); LYMPH % 24.5 % (22.0-35.0); MEAN CELL VOLUME 84.3 fl (80.0-105.0); MEAN CORPUSCULAR HEMOGLOBIN 26.8 pg (25.0-35.0); MEAN CORPUSCULAR HGB CONC 31.8 g/dl (31.0-37.0); MEAN PLATELET VOLUME 10.9 fl (7.0-11.0); MONO # 0.8 (0.1-0.6); RBC 4.52 10^6/uL (3.5-6.1); RED CELL DISTRIBUTION WIDTH 14.9 % (11.5-14.5); WHITE BLOOD COUNT 11.7 10^3/ul (4.5-11.0)
[2018-02-24 21:24] LABS: ALBUMIN 4.2 g/dL (3.0-4.8); ALT/SGPT 16 U/L (7-56); AST/SGOT 24 U/L (14-36); BLOOD UREA NITROGEN 16 mg/dL (7-21); CALCIUM 9.4 mg/dL (8.4-10.5); GFR NON-AFRICAN AMERICAN > 60
[2018-02-24 21:34] LABS: INR 0.97; PARTIAL THROMBOPLASTIN TIME 29.2 Seconds (25.1-36.5); PROTHROMBIN TIME 11.1 SECONDS (9.4-12.5)
[2018-02-24] MEDS ORDERED: Magnesium Sulfate 2 gm/50 ml 2 GM/50 ML BAG IVPB ONE (22:22)
[2018-02-24] MEDS ORDERED: Promethazine 6.25 MG/5 ML CUP PO STA (22:22)
[2018-02-24] MEDS ORDERED: Azithromycin 500MG/NS 250ml 500 MG/250 ML BAG IVPB STA (22:24)
--- NOTE | 2018-02-24 22:52 | ED PDOC ---
Arrival/HPI - General Chief Complaint: Cough, Cold, Congestion Time Seen by Provider: 02/24/18 19:51 Historian: Patient - History of Present Illness Narrative History of Present Illness (Text): 02/24/18 21:45 A 67 year old female, whose past medical history includes asthma, presents to the emergency department complaining of non-productive coughing, wheezing, and shortness of breath for 2 days. Patient reports she has had asthma exacerbations in the past and the symptoms she is currently experiencing feel similar to that. Patient tried using her nebulizer treatments, but has had no relief. She mentions having been admitted in the past for asthma exacerbation. Mentions she is non-steroidal dependent. Patient notes also having chills, however denies any fever, chest pain, or any other complaints. Also, patient denies any recent sick contacts or any recent travel. PMD: Dr. Jernigan Time/Duration: < week (2 days) Past Medical History - Provider Review Nursing Documentation Reviewed: Yes - Infectious Disease Hx of Infectious Diseases: None - Tetanus Immunization Tetanus Immunization: Up to Date - Cardiac Hx Cardiac Disorders: Yes Hx Hypertension: Yes - Pulmonary Hx Chronic Obstructive Pulmonary Disease (COPD): Yes - Neurological Hx Neurological Disorder: No - HEENT Hx HEENT Disorder: No (WEARS GLASSES) - Renal Hx Renal Disorder: No - Endocrine/Metabolic Hx Diabetes Mellitus Type 1: Yes Hx Diabetes Mellitus Type 2: Yes - Hematological/Oncological Hx Blood Disorders: No - Integumentary Hx Dermatological Disorder: No - Musculoskeletal/Rheumatological Hx Back Pain: Yes Hx Falls: Yes Hx Osteoarthritis: Yes - Gastrointestinal Hx Diverticulitis: Yes Hx Gastroesophageal Reflux: Yes - Genitourinary/Gynecological Hx Urinary Tract Infection: Yes (Frequent) - Psychiatric Hx Psychophysiologic Disorder: No Hx Substance Use: No - Surgical History Hx Appendectomy: Yes Hx Cholecystectomy: Yes Hx Hysterectomy: Yes - Anesthesia Hx Anesthesia: Yes Hx Anesthesia Reactions: No Hx Malignant Hyperthermia: No - Suicidal Assessment Feels Threatened In Home Enviroment: No Family/Social History - Physician Review Nursing Documentation Reviewed: Yes Family/Social History: No Known Family HX Smoking Status: Never Smoked Hx Alcohol Use: No Hx Substance Use: No Hx Substance Use Treatment: No Allergies/Home Meds Allergies/Adverse Reactions: Allergies FISH Allergy (Verified 02/24/18 19:35) SHORTNESS OF BREATH iodine Allergy (Verified 02/24/18 19:35) ANAPHYLAXIS Home Medications: Home Meds Medication Instructions Recorded Confirmed Insulin Aspart Prot/Insuln Asp 32 units SC TID 11/30/11 07/12/17 [Novolog Mix 70-30 Vial] Insulin Glargine,Hum.rec.anlog 60 unit SC HS 11/30/11 07/12/17 [Lantus] Tiotropium [Spiriva] 18 mcg IH DAILY 11/30/11 07/12/17 Montelukast [Singulair] 10 mg PO DAILY 06/15/13 07/12/17 Review of Systems - Physician Review All systems were reviewed & negative as marked: Yes - Review of Systems Constitutional: Night Sweats (chills). absent: Fevers Respiratory: SOB, Cough (non-productive), Wheezing Cardiovascular: absent: Chest Pain Physical Exam Vital Signs Reviewed: Yes Vital Signs Temp Pulse Resp BP Pulse Ox 02/24/18 23:10 88 17 99 02/24/18 19:38 98.8 F 82 18 135/78 96 Temperature: Afebrile Blood Pressure: Normal Pulse: Regular Respiratory Rate: Normal Appearance: Positive for: Well-Appearing, Non-Toxic, Comfortable, Other ( patient is morbidly obese) Pain Distress: None Mental Status: Positive for: Alert and Oriented X 3 - Systems Exam Head: Present: Atraumatic, Normocephalic Pupils: Present: PERRL Extroacular Muscles: Present: EOMI Conjunctiva: Present: Normal Mouth: Present: Moist Mucous Membranes Neck: Present: Normal Range of Motion Respiratory/Chest: Present: Respiratory Distress (mild), Wheezes (diffuse expiratory wheezing in all lung taylor) Cardiovascular: Present: Regular Rate and Rhythm, Normal S1, S2. No: Murmurs Abdomen: No: Tenderness, Distention, Peritoneal Signs Back: Present: Normal Inspection Upper Extremity: Present: Normal Inspection. No: Cyanosis, Edema Lower Extremity: Present: Normal Inspection. No: Edema Neurological: Present: GCS=15, CN II-XII Intact, Speech Normal Skin: Present: Warm, Dry, Normal Color. No: Rashes Psychiatric: Present: Alert, Oriented x 3, Normal Insight, Normal Concentration Medical Decision Making ED Course and Treatment: 02/24/18 21:50 Impression: 67 year old female with non-productive coughing, wheezing, and shortness of breath. Plan: -- Chest X-ray -- Duoneb -- SOLU-Medrol -- Promethazine -- Azithromycin -- Magnesium Sulfate IV -- Reassess and disposition Prior Visits: Notes and results from previous visits were reviewed. Patient was last seen here in the emergency department on 07/11/2017 for fever, non-productive cough, chills, and body aches. Patient was admitted. Progress Notes: 02/25/18 01:17 On re evaluation pt continue to wheeze and complain of SOB, s/p medications. she will be admitted for Asthma Exacerbation CXR Cardiomegaly. NAD Case was DW Dr. Jernigan and she accepted pt for admission. - Lab Interpretations Lab Results: 02/24/18 21:08 02/24/18 21:08 Lab Results 02/24/18 21:08: PT 11.1, INR 0.97, APTT 29.2 02/24/18 21:08: Sodium 140, Potassium 4.3, Chloride 103, Carbon Dioxide 28, Anion Gap 13, BUN 16, Creatinine 0.6 L, Est GFR ( Amer) > 60, Est GFR ( Non-Af Amer) > 60, Random Glucose 165 H, Calcium 9.4, Total Bilirubin 0.5, AST 24, ALT 16, Alkaline Phosphatase 120, Total Protein 8.2, Albumin 4.2, Globulin 4.0, Albumin/Globulin Ratio 1.0 L 02/24/18 21:08: WBC 11.7 H D, RBC 4.52, Hgb 12.1, Hct 38.1, MCV 84.3, MCH 26.8, MCHC 31.8, RDW 14.9 H, Plt Count 256, MPV 10.9, Gran % 65.6, Lymph % (Auto) 24.5 , [place] % (Auto) 7.0 H, Eos % (Auto) 2.7, Baso % (Auto) 0.2, Gran # 7.68 H, Lymph # (Auto) 2.9, [place] # (Auto) 0.8 H, Eos # (Auto) 0.3, Baso # (Auto) 0.02 - RAD Interpretation Radiology Orders: 02/24/18 20:25 CHEST TWO VIEWS (PA/LAT) [RAD] Stat - Medication Orders Current Medication Orders: Discontinued Medications Albuterol/Ipratropium (Duoneb 3 Mg/0.5 Mg (3 Ml) Ud) 3 ml IH Q15M STA Stop: 02/24/18 20:59 Last Admin: 02/24/18 21:46 Dose: 3 ml Magnesium Sulfate (Magnesium Sulfate 2 Gm/50 Ml Water) 2 gm in 50 mls @ 50 mls/ hr IVPB ONCE ONE Stop: 02/24/18 23:21 Last Admin: 02/24/18 22:57 Dose: 50 mls/hr eMAR Start Stop Document 02/24/18 22:57 IT (Rec: 02/24/18 22:57 IT [id number]) Intravenous Solution Start Date 02/24/18 Start Time 22:57 Azithromycin (Zithromax 500mg In Ns) 500 mg in 250 mls @ 167 mls/hr IVPB STAT STA PRN Reason: Protocol Stop: 02/24/18 23:53 Last Admin: 02/24/18 22:57 Dose: 167 mls/hr eMAR Start Stop Document 02/24/18 22:57 IT (Rec: 02/24/18 22:57 IT [id number]) Intravenous Solution Start Date 02/24/18 Start Time 22:57 Methylprednisolone (Solu-Medrol) 125 mg IVP STAT STA Stop: 02/24/18 20:59 Last Admin: 02/24/18 21:47 Dose: 125 mg IVP Administration Document 02/24/18 21:47 IT (Rec: 02/24/18 21:47 IT [id number]) Charges for Administration # of IVP Administrations 1 Promethazine HCl (Phenergan Syrup) 6.25 mg PO ONCE STA Stop: 02/24/18 22:23 Last Admin: 02/24/18 22:57 Dose: 6.25 mg - Scribe Statement The provider has reviewed the documentation as recorded by the Hernan Shelton Provider Scribe Provider Scribe Attestation: All medical record entries made by the Hernan were at my direction and personally dictated by me. I have reviewed the chart and agree that the record accurately reflects my personal performance of the history, physical exam, medical decision making, and the department course for this patient. I have also personally directed, reviewed, and agree with the discharge instructions and disposition. Disposition/Present on Arrival - Present on Arrival Any Indicators Present on Arrival: No History of DVT/PE: No History of Uncontrolled Diabetes: No Urinary Catheter: No History of Decub. Ulcer: No History Surgical Site Infection Following: None - Disposition Have Diagnosis and Disposition been Completed?: Yes Diagnosis: COPD exacerbation Disposition: HOSPITALIZED Disposition Time: 22:05 Patient Plan: Admission Condition: FAIR
[2018-02-25] MEDS ORDERED: Albuterol-Ipratrop 3 mg / 0.5 (3 ml) UD IH PRN (01:21)
[2018-02-25 02:42] VITALS: BMI 48.7
[2018-02-25] MEDS: Albuterol-Ipratrop 3 mg / 0.5 (3 ml) UD IH SCH ×4 (03:15→19:19)
[2018-02-25] MEDS: Pantoprazole 40 mg EC Tab PO SCH (05:45)
[2018-02-25] MEDS ORDERED: MethylPREDNISolone 40 mg Vial IVP SCH (06:00)
[2018-02-25] MEDS: Insulin Reg-HIGH-Coverage SC SCH ×4 (08:26→22:23)
[2018-02-25] MEDS: levoFLOXacin 500 mg in D5W 500 MG/100 ML BAG IVPB SCH (09:07)
[2018-02-25] MEDS ORDERED: Apap-Butalbital-Caffeine 325-50-40mg Tab PO PRN (11:13)
[2018-02-25] MEDS ORDERED: Insulin Lispro (humaLOG) MIX 75/25(10 ml) SC STA (11:48)
[2018-02-25] MEDS: Insulin Detemir 100 units/ml Vial (Levemir) SC SCH ×2 (12:09→22:23)
[2018-02-25] MEDS: Nystatin 100,000 Units/gm Oint(30 gm) TOP SCH ×2 (13:00→18:38)
[2018-02-25] MEDS: Promethazine/Cod 6.25mg-10mg/5ml Syr UD PO SCH ×2 (13:00→18:38)
--- NOTE | 2018-02-25 13:41 | RAD ---
Date of service: 02/24/2018 HISTORY: cough COMPARISON: 07/11/2017 TECHNIQUE: Chest PA and lateral FINDINGS: LUNGS: No active pulmonary disease. PLEURA: No significant pleural effusion identified. No pneumothorax apparent. CARDIOVASCULAR: Normal. OSSEOUS STRUCTURES: No significant abnormalities. VISUALIZED UPPER ABDOMEN: Normal. OTHER FINDINGS: None. IMPRESSION: No active disease.
[2018-02-25] MEDS ORDERED: INSULIN ASPART SC SCH (14:00)
[2018-02-25] MEDS ORDERED: INSULIN ASPART PROTAMINE SC SCH (14:00)
[2018-02-25] MEDS ORDERED: [UNRECOGNIZED DRUG - OTHER] SC SCH (14:00)
[2018-02-25] MEDS: Insulin Lispro (humaLOG) MIX 75/25(10 ml) SC SCH (17:51)
[2018-02-25] MEDS: MethylPREDNISolone 40 mg Vial IVP SCH (22:23)
[2018-02-26] MEDS: Albuterol-Ipratrop 3 mg / 0.5 (3 ml) UD IH SCH ×4 (02:45→19:32)
[2018-02-26] MEDS: Pantoprazole 40 mg EC Tab PO SCH ×2 (05:26)
--- NOTE | 2018-02-26 08:41 | HP ---
ADMISSION NOTE HISTORY OF PRESENT ILLNESS: Ms. Pérez, 67-year-old female, admitted to the hospital with cough, shortness of breath, wheezing for 2 days. She has a history of COPD. She also has a history of diabetes mellitus type 2, uncontrolled, on current medications. Received nebulizer treatment in the ED. Chest x-ray did not show any infiltrate. PAST MEDICAL HISTORY: Hypertension, COPD, diabetes mellitus type 2, osteoarthritis, back pain, GE reflux. PAST SURGICAL HISTORY: Appendectomy, cholecystectomy, hysterectomy. ALLERGIES: IODINE, FISH. PERSONAL HISTORY: Nonsmoker. No history of alcohol abuse. SOCIAL HISTORY: Lives at home. HOME MEDICATIONS: Insulin, Spiriva 18 mcg daily, Singulair 10 mg daily. REVIEW OF SYSTEMS: As per HPI. Rest of 12-point review of systems reviewed negative. PHYSICAL EXAMINATION: GENERAL: Comfortable in bed, in no acute distress. VITAL SIGNS: Temperature 98.8, heart rate 82 per minute, respiratory rate 18 per minute, blood pressure 130/78, pulse ox is 96% on room air. HEENT: Pallor positive. NECK: No lymphadenopathy. CHEST: Air entry present and equal, bilateral. Bilateral rhonchi present. NEUROLOGIC: Alert and oriented x3. No focal sensorimotor deficits. SKIN: No petechiae. No rash. SPINE: Nontender. Chest x-ray: No infiltrate. No cardiomegaly. LABORATORY DATA: White count 11.7, hemoglobin 12.1, hematocrit 38.1, platelet 256. Sodium 140, potassium 4.3, BUN 16, creatinine 0.6, glucose 165. ASSESSMENT: Chronic obstructive pulmonary disease exacerbation, hypertension, diabetes mellitus type 2, leukocytosis. PLAN: She will be admitted to the hospital. We will do DuoNeb every 6 hours scheduled and every 2 hours p.r.n., aspirin 81 mg daily, Mycelex 5 times a day, insulin to continue, Levaquin 500 mg IV daily, Solu-Medrol 30 mg every 12 hours, Singulair 10 mg daily, Protonix 40 mg daily, cough syrup t.i.d. p.r.n. CBC showed elevated white count, likely due to COPD exacerbation, currently on IV antibiotics. Blood culture negative. Deborah Yonatan, MD [facility] # [id number]
[2018-02-26] MEDS: Insulin Reg-HIGH-Coverage SC SCH ×4 (08:48→22:27)
[2018-02-26] MEDS: Insulin Lispro (humaLOG) MIX 75/25(10 ml) SC SCH (08:49)
[2018-02-26] MEDS: Promethazine/Cod 6.25mg-10mg/5ml Syr UD PO SCH ×3 (09:16→18:32)
[2018-02-26] MEDS: Insulin Detemir 100 units/ml Vial (Levemir) SC SCH ×2 (09:17→22:29)
[2018-02-26] MEDS: MethylPREDNISolone 40 mg Vial IVP SCH ×2 (09:17→22:34)
[2018-02-26] MEDS: levoFLOXacin 500 mg in D5W 500 MG/100 ML BAG IVPB SCH (09:18)
--- NOTE | 2018-02-26 10:34 | HP ---
HISTORY OF PRESENT ILLNESS: Patient is 67 years old, came to emergency room because of increasing shortness of breath. Patient states she has been having upper respiratory symptoms for almost a week, got worse in last 2 days and even worst yesterday and she was unable to catch her breath, had nonproductive cough. She was wheezing, took couple of nebulizer treatments with no relief. Denies any nausea or vomiting. No recent travel abroad. PAST MEDICAL HISTORY: Significant for: 1. Morbid obesity. 2. COPD. 3. Hypertension. 4. Hyperlipidemia. 5. Insulin-dependent diabetes. ALLERGIES: SHE IS ALLERGIC TO FISH AND IODINE. SOCIAL HISTORY: She is single, lives with her son. Denies smoking or drinking or alcohol abuse. MEDICATIONS AT HOME: She is on Protonix 40 daily, Singulair 10 mg daily. She is on NovoLog 70/30 and aspirin 81 daily. She is on Spiriva, Levemir, and Pulmicort. REVIEW OF SYSTEMS: Significant for cough, congestion and shortness of breath. On examination, complained of shortness of breath, complained of cough. PHYSICAL EXAMINATION: VITAL SIGNS: She is afebrile, pulse 86, respirations 20, blood pressure 131/67. LUNGS: Bilateral expiratory rhonchi. HEART: S1 and S2 audible. ABDOMEN: Soft, obese, nontender. No rebound. No guarding. NEUROLOGIC: Patient is awake, alert, oriented, communicative. LABORATORY EXAM: WBC is 11.7, hemoglobin 12, hematocrit 38, platelet 256. PT 11.1, INR is 0.97. Chemistry: Sodium 140, potassium 4.3, chloride 103, CO2 28, BUN 16, creatinine 0.6, blood sugar is 382. ASSESSMENT: 1. Chronic obstructive pulmonary disease exacerbation. 2. Uncontrolled insulin-dependent diabetes. 3. Hypertension. 4. Morbid obesity. 5. Obstructive sleep apnea. PLAN: We will continue patient on current medication. She is on IV steroids. She is on Protonix. She is on nebulizer treatment. We will monitor blood sugar. Follow up patient in a.m. Kaushik Jernigan MD
[2018-02-27] MEDS ORDERED: Promethazine/Cod 6.25mg-10mg/5ml Syr UD PO STA (01:36)
[2018-02-27] MEDS: Albuterol-Ipratrop 3 mg / 0.5 (3 ml) UD IH SCH ×5 (01:40→19:38)
[2018-02-27] MEDS: Pantoprazole 40 mg EC Tab PO SCH ×2 (05:45)
[2018-02-27 07:43] VITALS: RESP 20
[2018-02-27] MEDS: Insulin Reg-HIGH-Coverage SC SCH ×4 (08:25→21:46)
[2018-02-27] MEDS: Insulin Lispro (humaLOG) MIX 75/25(10 ml) SC SCH ×3 (08:25→17:19)
[2018-02-27] MEDS: MethylPREDNISolone 40 mg Vial IVP SCH ×2 (09:26→21:45)
[2018-02-27] MEDS: Insulin Detemir 100 units/ml Vial (Levemir) SC SCH ×2 (09:27→21:46)
[2018-02-27] MEDS: levoFLOXacin 500 mg in D5W 500 MG/100 ML BAG IVPB SCH (09:27)
[2018-02-27] MEDS: Promethazine/Cod 6.25mg-10mg/5ml Syr UD PO SCH ×3 (09:27→17:27)
[2018-02-27] MEDS: Nystatin 100,000 Units/gm Oint(30 gm) TOP SCH ×2 (09:28→17:20)
[2018-02-27 11:06] LABS: HEMOGLOBIN 11.7 g/dL (12.0-16.0); MEAN CELL VOLUME 83.6 fl (80.0-105.0); MEAN CORPUSCULAR HEMOGLOBIN 26.3 pg (25.0-35.0); MEAN CORPUSCULAR HGB CONC 31.5 g/dl (31.0-37.0); RBC 4.45 10^6/uL (3.5-6.1); WHITE BLOOD COUNT 14.4 10^3/ul (4.5-11.0)
[2018-02-27 11:12] LABS: ALB/GLOB RATIO 1.1 (1.1-1.8); ALT/SGPT 16 U/L (7-56); AST/SGOT 26 U/L (14-36); BLOOD UREA NITROGEN 27 mg/dL (7-21); CALCIUM 9.3 mg/dL (8.4-10.5); GFR NON-AFRICAN AMERICAN > 60
[2018-02-27] MEDS: Enoxaparin 40 mg Syringe SC SCH (12:12)
--- NOTE | 2018-02-27 13:09 | CT ---
Date of service: 02/27/2018 PROCEDURE: CT Chest without contrast HISTORY: Cough, shortness of breath COMPARISON: 07/14/2017. CT thorax 02/24/2018 single-view chest TECHNIQUE: Contiguous axial images were obtained through the chest without intravenous contrast enhancement. Sagittal and coronal reconstructions were performed. Radiation dose (DLP): 979.06 mGy-cm. This CT exam was performed using one or more of the following dose reduction techniques: Automated exposure control, adjustment of the mA and/or kV according to patient size, and/or use of iterative reconstruction technique. FINDINGS: LUNGS: Parabronchial thickening without mucous plugging. Linear atelectasis at the lung bases. These are stable, chronic findings. No discrete infiltrates. No pulmonary nodules or masses. MEDIASTINUM: Unremarkable thoracic aorta. No aneurysm. Normal sized heart. Dilated main pulmonary artery 3.5 cm consistent with pulmonary arterial hypertension. No lymphadenopathy. PLEURA: No pleural fluid. No pneumothorax. BONES: No fracture. No destructive lesion. UPPER ABDOMEN: Grossly unremarkable. OTHER FINDINGS: None. IMPRESSION: Findings consistent with lower airway disease/bronchitis. No discrete infiltrates. No suspicious nodules or masses identified. No significant interval change compared to the prior examination(s).
--- NOTE | 2018-02-27 14:06 | PN ---
DATE: 02/27/2018 SUBJECTIVE: The patient is 67 years old, still having hacking cough productive yellow phlegm, shortness of breath even at rest. PHYSICAL EXAMINATION VITAL SIGNS: She is afebrile, pulse 65, respirations 20, blood pressure 128/74. LUNGS: Bilateral respiratory rhonchi, but more pronounced posteriorly. HEART: S1 and S2 audible. ABDOMEN: Soft, nontender. No rebound, no guarding. NEUROLOGIC: The patient is awake, alert, oriented, communicative. EXTREMITIES: Bilateral legs +1 edema. LABORATORY DATA: WBC is 14.4, hemoglobin of 11.7, hematocrit 37.2, platelet 244. Chemistry: Sodium 139, potassium 4, chloride 101, CO2 of 29, BUN 27, creatinine 0.6, blood sugar of 138. Blood cultures are negative. X-ray of chest is unremarkable. ASSESSMENT: 1. Chronic obstructive pulmonary disease exacerbation. 2. Morbid obesity. 3. Hypertension. 4. Hyperlipidemia. 5. Insulin-dependent diabetes. PLAN: Currently, the patient is on Levaquin. She is on Protonix. She is on IV steroid. I will order for CTA of the chest. Start her on DVT prophylaxis. I will request for pulmonary evaluation by Dr. Aragon. After CT scan of the chest is available, make plan for possible TCU, since by history, she recovers from these episodes very slowly. Kaushik Jernigan MD
[2018-02-27] MEDS ORDERED: Benzocaine/Menthol (Cepacol) Lozenge MT PRN (20:49)
[2018-02-28] MEDS: Albuterol-Ipratrop 3 mg / 0.5 (3 ml) UD IH SCH (01:12)
--- NOTE | 2018-02-28 06:07 | CON ---
DATE: 02/27/2018 PULMONARY CONSULT REFERRING PHYSICIAN: Kaushik Jernigan MD. REASON FOR CONSULT: Cough, shortness of breath, sleep apnea syndrome. HISTORY OF PRESENT ILLNESS: This is a 67-year-old female with known history of sleep apnea syndrome, noncompliant with CPAP and BiPAP, chronic obstructive lung disease, hypertension, hyperlipidemia, diabetes, morbid obesity, comes in to the hospital with cough, shortness of breath, improved with bronchodilators. Presently sitting up in a chair, admit to have a loud snoring, daytime sleepy and tired. History of GERD. According to the patient, she has a CPAP at home, but apparently developed pressure ulcer on her cheek and could not use after that. PAST MEDICAL HISTORY: As per history of present illness. ALLERGIES: TO IODINE AND FISH PRODUCT. FAMILY HISTORY: No Significant cardiopulmonary disease reported. MEDICATIONS: She is on aspirin 81 mg daily, albuterol/Atrovent nebulizer every 2 hours p.r.n. and every 6 hours [id number], Fioricet is 2 tablets every 6 hours p.r.n., insulin, Levaquin 500 mg IV daily, Levemir 30 units subcu every 12 hours, Lovenox 40 mg daily, Mycelex Josh 10 mg 5 times a day, nystatin ointment to affected area, Phenergan with Codeine 5 mL three times a day, Protonix 40 mg daily, Singulair 10 mg daily, Solu-Medrol 30 mg twice a day, Tylenol p.r.n. basis. REVIEW OF SYSTEMS: Headache, mild rhinitis, cough, shortness of breath, epigastric discomfort. No chest pain. No abdominal pain. No dysuria. No leg pain or leg swelling. PHYSICAL EXAMINATION: GENERAL: No acute distress. VITAL SIGNS: Temperature is 98, heart rate 82, respiratory rate is 20, blood pressure 125/61, pulse ox 91%, 2 liters nasal cannula. HEENT: Moist mucous membrane. Crowded airway. Mallampati score is 4. NECK: Short thick neck. LUNGS: Have a few crackles at the bases also have rhonchi. HEART: S1 and S2. ABDOMEN: Soft, nontender, no organomegaly. EXTREMITIES: Trace edema. NEUROLOGIC: Awake and alert. Follows simple command. LABORATORY DATA: Shows hemoglobin 11.7, hematocrit 37.2, WBC 14.2, platelet is 244. INR 0.97. PTT is 29. Sodium 139, potassium 4, chloride 101, bicarbonate 29, BUN 27, creatinine 0.6, glucose 175, calcium is 9.3, AST 26, ALT 16, alk phos is 103. Albumin is 4. Microbiology, blood culture has been negative. CAT scan of the chest is done, which shows lower airway disease with bronchitis. IMPRESSION AND PLAN: Chronic obstructive lung disease with bronchitis involving the lower lobe rhonchi, sleep apnea syndrome, gastroesophageal reflux disease, morbid obesity, hypertension, diabetes, hyperlipidemia. I had long discussion with the patient about root cause of her disease, which is obesity causing gastroesophageal reflux disease, sleep apnea - probably nocturnal, and sudden inspiration. We will place her on CPAP 10 cm with a whole face mask. Continue inhaled bronchodilator, antibiotics, gastric prophylaxis. Keep head at 45 degrees. Outpatient, she should repeat the sleep study and pulmonary function test. Gastric and deep vein thrombosis prophylaxis. Thank you and we will follow with you. Frantz Aragon MD
[2018-02-28] MEDS: Pantoprazole 40 mg EC Tab PO SCH (06:29)
[2018-02-28 06:42] LABS: HEMOGLOBIN 11.6 g/dL (12.0-16.0); MEAN CELL VOLUME 83.7 fl (80.0-105.0); MEAN CORPUSCULAR HEMOGLOBIN 26.2 pg (25.0-35.0); MEAN CORPUSCULAR HGB CONC 31.4 g/dl (31.0-37.0); MEAN PLATELET VOLUME 10.9 fl (7.0-11.0); RBC 4.42 10^6/uL (3.5-6.1); RED CELL DISTRIBUTION WIDTH 15.1 % (11.5-14.5); WHITE BLOOD COUNT 12.9 10^3/ul (4.5-11.0)
[2018-02-28 07:13] LABS: ALB/GLOB RATIO 1.1 (1.1-1.8); ALBUMIN 3.9 g/dL (3.0-4.8); ALT/SGPT 15 U/L (7-56); AST/SGOT 25 U/L (14-36); BLOOD UREA NITROGEN 22 mg/dL (7-21); CALCIUM 9.2 mg/dL (8.4-10.5); GFR NON-AFRICAN AMERICAN > 60
[2018-02-28] MEDS: levoFLOXacin 500 mg in D5W 500 MG/100 ML BAG IVPB SCH (09:18)
[2018-02-28] MEDS: Insulin Reg-HIGH-Coverage SC SCH ×3 (09:19→16:46)
[2018-02-28] MEDS: Insulin Detemir 100 units/ml Vial (Levemir) SC SCH (09:20)
[2018-02-28] MEDS: Enoxaparin 40 mg Syringe SC SCH (09:20)
[2018-02-28] MEDS: Nystatin 100,000 Units/gm Oint(30 gm) TOP SCH ×2 (09:21→17:01)
[2018-02-28] MEDS: Promethazine/Cod 6.25mg-10mg/5ml Syr UD PO SCH ×3 (09:21→17:02)
[2018-02-28] MEDS: MethylPREDNISolone 40 mg Vial IVP SCH (09:22)
[2018-02-28] MEDS: Insulin Lispro (humaLOG) MIX 75/25(10 ml) SC SCH ×2 (09:44→16:45)
[2018-02-28 10:54] VITALS: BP 132/61; PULSE 68; TEMP 97.8; O2SAT 94
--- NOTE | 2018-02-28 19:04 | PN ---
DATE: 02/28/2018 PULMONARY PROGRESS NOTE. REFERRING PHYSICIAN: Kaushik Jernigan MD SUBJECTIVE: Patient is out of bed to chair. Night was unremarkable. Could not use whole face mask or the CPAP because she does have a component of claustrophobia. Still has cough, shortness of breath. No nausea. No vomiting. No diarrhea. Face and neck swelling. PHYSICAL EXAMINATION: GENERAL: In no acute distress. VITAL SIGNS: Temperature is 98, heart rate is 68, respiratory rate is 20, blood pressure 132/61, and pulse ox 94% on nasal cannula. HEENT: Moist mucous membrane. Crowded airway. Mallampati score is 4. NECK: Supple. No JVD. LUNGS: Bilateral crackles and rhonchi. HEART: S1 and S2. ABDOMEN: Soft, nontender. No organomegaly. EXTREMITIES: Trace edema. NEUROLOGIC: Awake and alert. Follows simple command. MEDICATIONS: She is on aspirin 81 mg daily, Cepacol lozenges every 2 hours p.r.n., DuoNeb every 2 hours p.r.n., DuoNeb every 6 hours [id number], Fioricet two tablets every 4 hours p.r.n., insulin coverage, Levaquin 500 mg daily, Levemir 30 units subcu every 12 hours, Lovenox 40 mg subcu daily, Mycelex Josh 10 mg five times a day, Phenergan with Codeine 5 mL three times a day, Protonix 40 mg daily, Reglan 10 mg four times a day, Singulair 10 mg daily, Solu-Medrol 30 mg every 12 hours, and Tylenol on p.r.n. basis. LABORATORY DATA: Shows hemoglobin 11.6, hematocrit 37, WBC 12.9, and platelets 282. Sodium 139, potassium 5.3, chloride 101, bicarbonate 32. BUN 22, creatinine 0.6. Glucose 268. Calcium 9.2. AST 25, ALT 15, alk phos is 118. Albumin is 3.9. Microbiology, blood culture has been negative. IMPRESSION AND PLAN: Chronic obstructive lung disease with bronchitis involving lower lobe bronchi, sleep apnea syndrome, gastroesophageal reflux disease, morbid obesity, hypertension, diabetes, hyperlipidemia. Pulmonary point of view, still has cough, shortness of breath, could not use BiPAP, has a claustrophobia, refusing to use nasal and full face mask. We will continue IV steroids, antibiotics, GERD precautions, avoid sedatives, continue supplement oxygen, may benefit from nasal pillow mask which is not available in the hospital as an outpatient. Thank you and we will follow with you. Frantz Aragon MD
--- NOTE | 2018-03-01 01:59 | DS ---
HISTORY OF PRESENT ILLNESS: The patient is 67 years old, still has cough, congestion, hacking, barking cough. Shortness of breath on minimal walking, not ready to go home. PHYSICAL EXAMINATION: VITAL SIGNS: She is afebrile, pulse 68, respirations 20, blood pressure 132/61. LUNGS: Bilateral good airflow. Bilateral expiratory rhonchi also. HEART: S1 and S2 audible. ABDOMEN: Soft, obese, nontender. No rebound. No guarding. NEUROLOGIC: Patient is awake, alert, oriented, communicative. Moves all extremities. EXTREMITIES: Bilateral legs, no edema. LABORATORY EXAM: WBC is 12.9, hemoglobin 11.6, hematocrit 37, platelets 282. Chemistry: Sodium 139, potassium 5.3, chloride 101, CO2 of 32, BUN 22, creatinine 0.6. Blood sugar 285. Blood cultures are negative. DIAGNOSTIC DATA: CT scan does not show any infiltrate. ASSESSMENT: 1. Asthmatic bronchitis. 2. Exertional dyspnea. 3. Hypertension. 4. Hyperlipidemia. 5. Insulin-dependent diabetes. PLAN: Patient is currently stable. We will continue on current medications. She is going to be transferred to TCU today and I will follow up there. We will follow up patient in a.m. Kaushik Jernigan MD
[2018-03-01] MEDS ORDERED: levoFLOXacin 500 MG TAB PO SCH (10:00)
== END 2018-02-28 17:57 | DRG 191 ==
LOC: ED 19:08 → ERH 22:25 → 3RNO 02-25 00:25
PROVIDERS: ADMIT Internal Medicine; ATTEND Internal Medicine
DX: J44.1 Chronic obstructive pulmonary disease with (acute) exacerbation (principal); Z68.42 Body mass index [BMI] 45.0-49.9, adult; I10 Essential (primary) hypertension; E11.65 Type 2 diabetes mellitus with hyperglycemia; E66.01 Morbid (severe) obesity due to excess calories; G47.33 Obstructive sleep apnea (adult) (pediatric); K21.9 Gastro-esophageal reflux disease without esophagitis; E78.5 Hyperlipidemia, unspecified; M19.90 Unspecified osteoarthritis, unspecified site; M54.9 Dorsalgia, unspecified; Z87.440 Personal history of urinary (tract) infections; Z79.4 Long term (current) use of insulin; Z79.82 Long term (current) use of aspirin; Z91.19 Patient's noncompliance with other medical treatment and regimen

== ENCOUNTER 2018-02-28 18:00 | Inpatient (IN) | payer OTHER, BC ==
[2018-02-28] MEDS ORDERED: Albuterol-Ipratrop 3 mg / 0.5 (3 ml) UD IH PRN (18:14)
[2018-02-28] MEDS ORDERED: Benzocaine/Menthol (Cepacol) Lozenge MT PRN (18:14)
[2018-02-28] MEDS ORDERED: Apap-Butalbital-Caffeine 325-50-40mg Tab PO PRN (18:14)
[2018-02-28 18:15] VITALS: BMI 47.2
[2018-02-28] MEDS ORDERED: Pneumococcal 23-Valent Vaccine IM ONE (19:38)
[2018-02-28] MEDS ORDERED: Influenza Vaccine 60 mcg/0.5 mL SYR (4YR UP) IM ONE (19:38)
[2018-02-28] MEDS: Albuterol-Ipratrop 3 mg / 0.5 (3 ml) UD IH SCH (20:17)
[2018-02-28] MEDS: Insulin Reg-HIGH-Coverage SC SCH (21:28)
[2018-02-28] MEDS: Insulin Detemir 100 units/ml Vial (Levemir) SC SCH (21:29)
[2018-03-01] MEDS: Albuterol-Ipratrop 3 mg / 0.5 (3 ml) UD IH SCH ×3 (03:05→20:18)
[2018-03-01] MEDS: Enoxaparin 40 mg Syringe SC SCH (06:10)
[2018-03-01] MEDS: levoFLOXacin 500 MG TAB PO SCH (06:10)
[2018-03-01] MEDS: MethylPREDNISolone 40 mg Vial IVP SCH ×2 (06:11→17:33)
[2018-03-01] MEDS: Pantoprazole 40 mg EC Tab PO SCH (06:11)
[2018-03-01] MEDS: Insulin Lispro (humaLOG) MIX 75/25(10 ml) SC SCH ×2 (06:42→17:23)
[2018-03-01] MEDS: Insulin Reg-HIGH-Coverage SC SCH ×4 (06:43→21:27)
[2018-03-01] MEDS: Nystatin 100,000 Units/gm Oint(30 gm) TOP SCH ×2 (10:09→17:28)
[2018-03-01] MEDS: Promethazine/Cod 6.25mg-10mg/5ml Syr UD PO SCH ×3 (10:12→21:32)
[2018-03-01] MEDS: Insulin Detemir 100 units/ml Vial (Levemir) SC SCH ×2 (10:15→21:27)
[2018-03-01] MEDS ORDERED: Apap-Butalbital-Caffeine 325-50-40mg Tab PO PRN (19:51)
--- NOTE | 2018-03-01 22:46 | HP ---
HISTORY OF PRESENT ILLNESS: Patient is 67 years old who came in with cough, congestion, shortness of breath, hacking and barking cough with productive phlegm. She was short of breath, unable to walk even to the bathroom. She came to ER. Had CT scan of the chest done, negative for pneumonia. However, she has been on IV antibiotics and nebulizer treatment. Doing a little better. Transferred to TCU for rehab and continuation of her IV treatment. PAST MEDICAL HISTORY: Significant for: 1. Obesity. 2. Obstructive sleep apnea. 3. Hypertension. 4. Hyperlipidemia. ALLERGIES: SHE IS ALLERGIC TO FISH AND IODINE. MEDICATIONS AT HOME: 1. She is on Spiriva. 2. She is on Protonix. 3. Singulair 10 mg daily. 4. Reglan 10 mg every 6 hours. 5. Insulin 75/25 before breakfast, before dinner. 6. She is on Levemir 30 units twice a day. 7. Lovenox 40 mg daily. 8. She is on Mycelex Josh. 9. She is on Pulmicort. 10. She is on aspirin. SOCIAL HISTORY: She lives by herself. Denies smoking, drinking, or alcohol use. PHYSICAL EXAMINATION: GENERAL: She is awake, alert, oriented, still has cough. VITAL SIGNS: She is afebrile, pulse 85, respirations 18, blood pressure 146/82. LUNGS: Bilateral fair airflow. No rhonchi or crackle. HEART: S1 and S2 audible. ABDOMEN: Soft, obese, nontender. No rebound. No guarding. NEUROLOGIC: Patient is awake and alert. Able to communicate. LABORATORY EXAM: Blood sugar is 239. ASSESSMENT: 1. Asthmatic bronchitis. 2. Morbid obesity. 3. Hypertension. 4. Hyperlipidemia. 5. Insulin-dependent diabetes. PLAN: We will continue current medication. MAR reviewed, found to be appropriate. We will follow up patient in a.m. Kaushik Jernigan MD
[2018-03-02] MEDS: Albuterol-Ipratrop 3 mg / 0.5 (3 ml) UD IH SCH ×4 (03:30→19:41)
[2018-03-02] MEDS: Pantoprazole 40 mg EC Tab PO SCH (05:50)
[2018-03-02] MEDS: MethylPREDNISolone 40 mg Vial IVP SCH ×2 (05:50→17:36)
[2018-03-02] MEDS: levoFLOXacin 500 MG TAB PO SCH (05:50)
[2018-03-02] MEDS: Enoxaparin 40 mg Syringe SC SCH (05:50)
[2018-03-02] MEDS: Insulin Lispro (humaLOG) MIX 75/25(10 ml) SC SCH ×2 (06:48→17:31)
[2018-03-02] MEDS: Insulin Reg-HIGH-Coverage SC SCH ×4 (06:48→21:12)
[2018-03-02] MEDS: Insulin Detemir 100 units/ml Vial (Levemir) SC SCH ×2 (09:47→21:13)
[2018-03-02] MEDS: Nystatin 100,000 Units/gm Oint(30 gm) TOP SCH ×2 (09:48→17:34)
[2018-03-02] MEDS: Promethazine/Cod 6.25mg-10mg/5ml Syr UD PO SCH ×3 (09:50→17:35)
--- NOTE | 2018-03-02 13:16 | PN ---
DATE: 03/02/2018 SUBJECTIVE: The patient is 67 years old, seen and examined, doing well. No nausea or vomiting. No diarrhea. Eating and tolerating. Still has cough congestion. PHYSICAL EXAMINATION: VITAL SIGNS: She is afebrile, pulse 70, respirations 16, blood pressure 138/80. LUNGS: Bilateral crackles in upper lung region. HEART: S1 and S2 audible. ABDOMEN: Soft. Nontender. No rebound. No guarding. NEUROLOGICAL: The patient is awake, alert, oriented, communicative, able to communicate. EXTREMITIES: Bilateral leg, +1 edema. LABORATORY EXAM: Blood sugar is 188. ASSESSMENT: 1. Asthmatic bronchitis. 2. Bilateral soft crackling with productive cough. 3. Morbid obesity. 4. Obstructive sleep apnea. 5. Insulin-dependent diabetes. 6. Hypertension. 7. Hyperlipidemia. PLAN: I will add Mucomyst. We will add chest PT and we will follow up the patient in the a.m. Kaushik Jernigan MD
[2018-03-02] MEDS: Acetylcysteine 20% Inhal Soln (4ml) IH SCH (19:41)
[2018-03-03] MEDS: Albuterol-Ipratrop 3 mg / 0.5 (3 ml) UD IH SCH ×4 (01:31→20:26)
[2018-03-03] MEDS: Enoxaparin 40 mg Syringe SC SCH (05:56)
[2018-03-03] MEDS: levoFLOXacin 500 MG TAB PO SCH (05:56)
[2018-03-03] MEDS: MethylPREDNISolone 40 mg Vial IVP SCH ×2 (05:57→17:30)
[2018-03-03] MEDS: Pantoprazole 40 mg EC Tab PO SCH (05:57)
[2018-03-03] MEDS: Insulin Reg-HIGH-Coverage SC SCH ×4 (06:45→21:25)
[2018-03-03] MEDS: Insulin Lispro (humaLOG) MIX 75/25(10 ml) SC SCH ×2 (06:45→17:27)
[2018-03-03] MEDS: Acetylcysteine 20% Inhal Soln (4ml) IH SCH ×2 (07:17→20:26)
[2018-03-03] MEDS: Insulin Detemir 100 units/ml Vial (Levemir) SC SCH ×2 (10:24→21:25)
[2018-03-03] MEDS: Nystatin 100,000 Units/gm Oint(30 gm) TOP SCH ×2 (10:25→17:30)
[2018-03-03] MEDS: Promethazine/Cod 6.25mg-10mg/5ml Syr UD PO SCH ×3 (10:27→17:30)
--- NOTE | 2018-03-03 23:15 | PN ---
DATE: 03/03/2018 SUBJECTIVE: The patient is 67 years old, seen and examined. Still having a barking cough and productive cough. Eating and tolerating. No nausea or vomiting. No fever. No chills. PHYSICAL EXAMINATION: VITAL SIGNS: She is afebrile, pulse 92, respirations 18, blood pressure 152/85. LUNGS: Bilateral fair airflow. No rhonchi or crackle. However, posteriorly she has soft crackle in the upper lung region. HEART: S1 and S2 audible. ABDOMEN: Soft, obese, nontender. No rebound. No guarding. NEUROLOGICAL: She is awake and alert, communicative, ambulatory. EXTREMITIES: Bilateral leg, no edema. LABORATORY EXAM: Blood sugar is 217. ASSESSMENT: 1. Asthmatic bronchitis. 2. Hypertension. 3. Insulin-dependent diabetes. 4. Morbid obesity. 5. . PLAN: We will continue the patient on current medication. DVT prophylaxis. She is on p.o. Levaquin. Blood sugar is being monitor. Encourage ambulation. Follow up in the a.m. Kaushik Jernigan MD
[2018-03-04] MEDS: Albuterol-Ipratrop 3 mg / 0.5 (3 ml) UD IH SCH ×4 (01:54→21:00)
[2018-03-04] MEDS: Enoxaparin 40 mg Syringe SC SCH (06:05)
[2018-03-04] MEDS: levoFLOXacin 500 MG TAB PO SCH (06:05)
[2018-03-04] MEDS: MethylPREDNISolone 40 mg Vial IVP SCH ×2 (06:06→17:24)
[2018-03-04] MEDS: Pantoprazole 40 mg EC Tab PO SCH (06:06)
[2018-03-04] MEDS: Insulin Lispro (humaLOG) MIX 75/25(10 ml) SC SCH ×2 (06:41→17:20)
[2018-03-04] MEDS: Insulin Reg-HIGH-Coverage SC SCH ×4 (06:42→21:37)
[2018-03-04] MEDS: Acetylcysteine 20% Inhal Soln (4ml) IH SCH ×2 (07:30→21:00)
[2018-03-04] MEDS: Nystatin 100,000 Units/gm Oint(30 gm) TOP SCH ×2 (10:15→17:22)
[2018-03-04] MEDS: Insulin Detemir 100 units/ml Vial (Levemir) SC SCH ×2 (10:16→21:37)
[2018-03-04] MEDS: Promethazine/Cod 6.25mg-10mg/5ml Syr UD PO SCH ×3 (10:19→17:24)
--- NOTE | 2018-03-04 19:16 | PN ---
DATE: 03/04/2018 SUBJECTIVE: The patient is 67 years old, seen and examined. Still has cough, congestion, slowly getting better. PHYSICAL EXAMINATION: VITAL SIGNS: She is afebrile, pulse 74, respirations 20, blood pressure 142/83. LUNGS: Bilateral fair airflow. No rhonchi or crackle. HEART: S1 and S2 audible. ABDOMEN: Soft, obese, nontender. No rebound. No guarding. NEUROLOGIC: She is awake and alert. Able to communicate, ambulate, but states her right knee hurts on ambulating. ASSESSMENT: 1. Asthmatic bronchitis. 2. Morbid obesity. 3. Right knee osteoarthritis. PLAN: We will get right knee x-ray. Start her on Mobic. Continue on Mucomyst. Continue on aspirin. Continue nebulizer treatment. Monitor her blood sugar. We will follow up patient in a.m. Kaushik Jernigan MD
[2018-03-05] MEDS: Albuterol-Ipratrop 3 mg / 0.5 (3 ml) UD IH SCH ×3 (03:15→20:43)
[2018-03-05] MEDS: Insulin Lispro (humaLOG) MIX 75/25(10 ml) SC SCH ×2 (07:31→17:24)
[2018-03-05] MEDS: Insulin Reg-HIGH-Coverage SC SCH ×4 (07:31→22:00)
[2018-03-05] MEDS: levoFLOXacin 500 MG TAB PO SCH (07:47)
[2018-03-05] MEDS: Pantoprazole 40 mg EC Tab PO SCH (07:47)
[2018-03-05] MEDS: Enoxaparin 40 mg Syringe SC SCH (07:47)
[2018-03-05] MEDS: MethylPREDNISolone 40 mg Vial IVP SCH ×2 (07:48→17:26)
[2018-03-05] MEDS: Acetylcysteine 20% Inhal Soln (4ml) IH SCH ×2 (09:01→20:43)
[2018-03-05] MEDS: Nystatin 100,000 Units/gm Oint(30 gm) TOP SCH ×2 (09:43→17:26)
[2018-03-05] MEDS: Promethazine/Cod 6.25mg-10mg/5ml Syr UD PO SCH ×3 (09:44→22:02)
[2018-03-05] MEDS: Insulin Detemir 100 units/ml Vial (Levemir) SC SCH ×2 (09:47→22:02)
--- NOTE | 2018-03-05 10:12 | RAD ---
Date of service: 03/04/2018 PROCEDURE: Right Knee Radiographs. HISTORY: Pain. No history of recent/ related trauma provided COMPARISON: None. FINDINGS: BONES: No acute fracture. Proliferative hypertrophic changes emanating from the femoral condyle and tibial plateau regions. JOINTS: Degenerative changes primarily affecting medial compartment and to lesser extent patellofemoral joint and lateral compartment. JOINT EFFUSION: None. OTHER FINDINGS: None. IMPRESSION: Tricompartmental degenerative changes. No acute findings related to/accounting for the clinical presentation.
[2018-03-05 10:15] VITALS: RESP 18
--- NOTE | 2018-03-06 00:31 | PN ---
DATE: 03/05/2018 SUBJECTIVE: The patient is a 67-year-old, seen and examined. Still complained of cough and congestion, but slowly getting better. Her right knee pain is better. PHYSICAL EXAMINATION: VITAL SIGNS: She is afebrile, pulse 72, respiratory rate 18, blood pressure 123/73. LUNGS: Bilateral airflow present but has bilateral soft crackle more so in the upper lung region. HEART: S1 and S2 audible. ABDOMEN: Soft, obese, nontender. No rebound. No guarding. NEUROLOGIC: Patient is awake, alert, oriented, communicative. LABORATORY EXAM: Blood sugar is running high because of steroid. I will increase her coverage from 35 to 40. ASSESSMENT: 1. Asthmatic bronchitis. 2. History of bronchial asthma. 3. Morbid obesity. 4. Knee osteoarthritis. 5. Hypertension. 6. Insulin-dependent diabetes. PLAN: We will continue patient on current medication. She is on Levaquin. She is on DVT prophylaxis. We will continue meloxicam. She is on Protonix. Kaushik Jernigan MD
[2018-03-06] MEDS: Albuterol-Ipratrop 3 mg / 0.5 (3 ml) UD IH SCH ×4 (03:16→20:55)
[2018-03-06] MEDS: Enoxaparin 40 mg Syringe SC SCH (06:12)
[2018-03-06] MEDS: MethylPREDNISolone 40 mg Vial IVP SCH (06:12)
[2018-03-06] MEDS: Pantoprazole 40 mg EC Tab PO SCH (06:12)
[2018-03-06] MEDS: levoFLOXacin 500 MG TAB PO SCH (06:12)
[2018-03-06] MEDS: Insulin Lispro (humaLOG) MIX 75/25(10 ml) SC SCH ×2 (07:00→17:24)
[2018-03-06] MEDS: Insulin Reg-HIGH-Coverage SC SCH ×4 (07:03→22:31)
[2018-03-06] MEDS: Acetylcysteine 20% Inhal Soln (4ml) IH SCH ×2 (07:46→20:55)
[2018-03-06] MEDS: Nystatin 100,000 Units/gm Oint(30 gm) TOP SCH ×2 (09:48→17:25)
[2018-03-06] MEDS: Promethazine/Cod 6.25mg-10mg/5ml Syr UD PO SCH ×3 (09:48→22:27)
[2018-03-06] MEDS: Insulin Detemir 100 units/ml Vial (Levemir) SC SCH ×2 (09:49→22:27)
[2018-03-07] MEDS: Albuterol-Ipratrop 3 mg / 0.5 (3 ml) UD IH SCH ×4 (03:15→20:00)
[2018-03-07] MEDS: Insulin Reg-HIGH-Coverage SC SCH ×4 (06:33→21:01)
[2018-03-07] MEDS: Insulin Lispro (humaLOG) MIX 75/25(10 ml) SC SCH ×2 (06:34→17:50)
[2018-03-07] MEDS: Pantoprazole 40 mg EC Tab PO SCH (06:35)
[2018-03-07] MEDS: Enoxaparin 40 mg Syringe SC SCH (06:58)
[2018-03-07] MEDS: Acetylcysteine 20% Inhal Soln (4ml) IH SCH ×2 (07:32→20:01)
--- NOTE | 2018-03-07 08:14 | PN ---
DATE: 03/06/2018 SUBJECTIVE: The patient is 67-year-old, seen and examined. Still has cough and congestion. Started to cough up phlegm. Seems better after that. PHYSICAL EXAMINATION: VITAL SIGNS: She is afebrile, pulse 107, respirations 18, blood pressure 123/73. LUNGS: LABORATORY DATA: Blood sugar is 207. ASSESSMENT: 1. Asthmatic bronchitis. 2. Morbid obesity. 3. Hypertension. 4. Insulin-dependent diabetes. PLAN: We will continue patient on current medication. We will discontinue IV steroids and switch her to p.o. steroid, and possible discharge . Kaushik Jernigan MD
[2018-03-07] MEDS: Insulin Detemir 100 units/ml Vial (Levemir) SC SCH ×2 (10:21→21:01)
[2018-03-07] MEDS: Nystatin 100,000 Units/gm Oint(30 gm) TOP SCH ×2 (10:23→17:52)
[2018-03-07] MEDS: Promethazine/Cod 6.25mg-10mg/5ml Syr UD PO SCH ×5 (10:24→21:22)
[2018-03-07] MEDS ORDERED: Magnesium Citrate Oral SOL (300 ml) PO ONE (11:55)
[2018-03-07 16:33] VITALS: BP 118/62; PULSE 86; TEMP 98.2; O2SAT 96
--- NOTE | 2018-03-07 20:23 | PN ---
DATE: 03/07/2018 SUBJECTIVE: The patient is 67 years old, seen and examined. Still has cough and congestion, better than before. No nausea or vomiting. Complain of constipation. Eating well. PHYSICAL EXAMINATION: VITAL SIGNS: She is afebrile, pulse 86, respirations 18, blood pressure 118/62. LUNGS: Bilateral fair airflow. No rhonchi or crackle. HEART: S1 and S2 audible. ABDOMEN: Soft, nontender. No rebound. No guarding. NEUROLOGIC: She is awake and alert. Able to communicate, ambulatory. LABORATORY DATA: Had x-ray done that shows degenerative joint disease. ASSESSMENT: 1. Morbid obesity. 2. Asthmatic bronchitis. 3. Right knee osteoarthritis. 4. Hypertension. 5. Hyperlipidemia. 6. [id number] diabetes. PLAN: I will give her a dose of magnesium citrate. I will request Dr. Barrios to evaluate the knee for possible intraarticular steroid injection. Kaushik Jernigan MD
[2018-03-08] MEDS: Albuterol-Ipratrop 3 mg / 0.5 (3 ml) UD IH SCH ×3 (02:46→13:14)
[2018-03-08] MEDS: Pantoprazole 40 mg EC Tab PO SCH (05:51)
[2018-03-08] MEDS: Enoxaparin 40 mg Syringe SC SCH (05:52)
[2018-03-08] MEDS: Insulin Lispro (humaLOG) MIX 75/25(10 ml) SC SCH (07:04)
[2018-03-08] MEDS: Insulin Reg-HIGH-Coverage SC SCH ×2 (07:05→12:24)
[2018-03-08] MEDS ORDERED: Bupivacaine 0.5% Inj(30mL) IJ ONE (08:38)
[2018-03-08] MEDS ORDERED: MethylPREDNISolone Depo 40 mg/ml Inj IM ONE (08:38)
[2018-03-08] MEDS: Insulin Detemir 100 units/ml Vial (Levemir) SC SCH (10:21)
[2018-03-08] MEDS: Promethazine/Cod 6.25mg-10mg/5ml Syr UD PO SCH ×2 (10:23→13:56)
[2018-03-08] MEDS: Nystatin 100,000 Units/gm Oint(30 gm) TOP SCH (10:23)
[2018-03-08] MEDS: Acetylcysteine 20% Inhal Soln (4ml) IH SCH ×2 (13:13→13:14)
--- NOTE | 2018-03-08 14:50 | CON ---
DATE: 03/08/2018 HISTORY OF PRESENT ILLNESS: The patient is seen in room 322, bed 1. I am seeing as a request of Dr. Jernigan. Patient has mild osteoarthritis of the left greater than right knee and treatment for this at this stage is very mildest when she is up to get a Depo-Medrol and Marcaine injection, instituting physical therapy, which is the work she is on. I told her she could consider Depo-Medrol injection when she gets out of the hospital before she is leaving to have decreased inflammation but she is not a surgical candidate and we can do the injection as an outpatient. FINAL DIAGNOSES: Medial joint line osteoarthritis of her right knee maybe able to be help with the Depo-Medrol injection or Euflexxa injection that would be the best as Hyalgan, which last six months, but she can only get that in the office, so I will explain that to her. Mild osteoarthritis of right knee compatible for Euflexxa injection, which is Hyalgan with series of three shots as an outpatient. Genaro Barrios DO
--- NOTE | 2018-03-09 06:12 | DS ---
HISTORY OF PRESENT ILLNESS: The patient is 67 years old, came in with increasing cough, congestion. She was given IV steroids, IV antibiotics and nebulizer treatment. The patient has history of slow recovery so she was transferred to TCU to continue her course of antibiotics and nebulizer treatment, did well. Still has cough and congestion with wheezing, but much better than before. PHYSICAL EXAMINATION: GENERAL: On examination today, she is awake, alert, oriented, communicative. VITAL SIGNS: She is afebrile, pulse 86, respirations 18, blood pressure 118/62. LUNGS: Bilateral soft crackles. HEART: S1, S2 audible. ABDOMEN: Soft, obese, nontender. No rebound, no guarding. NEUROLOGICAL: The patient is awake, alert, oriented, communicative. The patient did complain of pain in the right knee and had x-ray done shows tricompartmental osteoarthritis, was given intraarticular steroids, injection by Dr. Barrios, seems to be doing better, less painful on walking. LABORATORY EXAM: Blood sugar is 151. ASSESSMENT: 1, Morbid obesity. 2. Chronic obstructive pulmonary disease exacerbation. 3. Hypertension. 4. Hyperlipidemia. 5. Asthmatic bronchitis. PLAN: The patient is being discharged home on Levaquin 500 daily and prednisone 20 mg daily for 5 more days. She will follow up with Dr. Ryder. Kaushik Jernigan MD
--- NOTE | 2018-03-09 06:25 | PROCN ---
Copied To: Genaro Barrios DO Attending MD: Genaro Barrios DO DATE: 03/08/2018 LOCATION: Room 322, bed 1. I just have seen the patient for osteoarthritis of right knee. She did not want injection at that time I was going to do it in the office, but now I got call back to see the patient. She does want a Depo-Medrol and Marcaine injection to her arthritic right knee, which is mild, but x-ray showed decreased joint space on the right x-rays. So, I went to the pharmacy to get the medicine. I prepped and draped the right leg and gave her Depo-Medrol and Marcaine injection into the right knee to the lateral anterior portal; hopefully, this will help her symptoms. I think she should go home today, but I told the better injection would be Hyalgan injection, I could do in the office. She would have to call the office for an appointment. FINAL DIAGNOSIS: Osteoarthritis of right knee, injected with Depo-Medrol and Marcaine. Genaro Barrios DO
== END 2018-03-08 15:06 | disposition home or self-care (01) | DRG 191 ==
LOC: TRCU 18:00
PROVIDERS: ADMIT Internal Medicine; ATTEND Internal Medicine
PROC: 3E0F7GC Introduction of Other Therapeutic Substance into Respiratory Tract, Via Natural or Artificial Opening (ICD-10-PCS; 2018-02-28)
PROC: F07Z9FZ Gait Training/Functional Ambulation Treatment using Assistive, Adaptive, Supportive or Protective Equipment (ICD-10-PCS; principal; 2018-03-01)
PROC: F08Z4FZ Home Management Treatment using Assistive, Adaptive, Supportive or Protective Equipment (ICD-10-PCS; 2018-03-01)
PROC: 3E0U33Z Introduction of Anti-inflammatory into Joints, Percutaneous Approach (ICD-10-PCS; 2018-03-08)
PROC: 3E0U3BZ Introduction of Anesthetic Agent into Joints, Percutaneous Approach (ICD-10-PCS; 2018-03-08)
DX: J44.1 Chronic obstructive pulmonary disease with (acute) exacerbation (principal); Z68.42 Body mass index [BMI] 45.0-49.9, adult; E66.01 Morbid (severe) obesity due to excess calories; E11.9 Type 2 diabetes mellitus without complications; I10 Essential (primary) hypertension; G47.33 Obstructive sleep apnea (adult) (pediatric); E78.5 Hyperlipidemia, unspecified; M17.11 Unilateral primary osteoarthritis, right knee; K59.00 Constipation, unspecified; Z79.2 Long term (current) use of antibiotics; Z79.899 Other long term (current) drug therapy; Z79.4 Long term (current) use of insulin